=== PATIENT | female | born 1990 | race Caucasian/White ===

== ENCOUNTER 2020-09-10 20:34 | Inpatient (IN) | payer OTHER, SELFPAY ==
[2020-09-10] VITALS (12 sets, daily range): BP systolic 112–134; BP diastolic 65–101; PULSE 51–88; TEMP 36.9; BMI 35.2
--- NOTE | 2020-09-10 20:34 | LDADM ---
This patient, Magy Nunes, was admitted to Labor/Delivery/Recovery 102 on 09/10/20 at 20:34. Plans for labor, pain management and were discussed with patient. Patient/family oriented to hospital policies and general routines including ID bracelet, bed and alarms, visiting hours, pain management, procedures, bathroom and other care routines, personal items, smoking policy, room service/diet and guest tray routines, security routines, and visiting hours. Patient/Family are encouraged to report perceived risks to care and to ask questions if they do not understand what they are told or what they should do. See OBIX for further documentation.
[2020-09-10] MEDS: AMPICILLIN 2 GM/NS 100 ML 2 GM/100 ML BAG IVPB (21:34)
[2020-09-10] MEDS: LACTATED RINGERS 1,000 ML 125 ML IV CONT (21:34)
[2020-09-10 21:35] LABS: Basophils Percent Auto 0.1 % (0.2-1.2); Eosinophils Absolute Auto 0.1 K/mm3 (0-0.3); Eosinophils Percent Auto 0.6 % (0-4.4); Hematocrit 35.2 % (37.0-47.0); Hemoglobin 12.4 g/dL (12.0-15.0); Immature Granulocyte Absolute 0.03 K/mm3 (0.00-0.031); Immature Granulocyte Percent A 0.3 % (0-0.5); Lymphocytes Absolute Auto 2.41 K/mm3 (0.9-3.2); Lymphocytes Percent Auto 25.1 % (18.3-44.2); Mean Corpuscular HGB Conc 35.2 g/dl (32-36); Mean Corpuscular Hemoglobin 32.7 pg (26-34); Mean Corpuscular Volume 92.9 fl (80-100); Mean Platelet Volume 9.5 fl (7.4-10.4); Monocytes Absolute Auto 0.7 K/mm3 (0.1-0.6); Monocytes Percent Auto 6.9 % (2.6-8.5); Neutrophils Absolute Auto 6.5 K/mm3 (1.3-6.7); Platelet Count Result 265 k/mm3 (150-375); Red Blood Count 3.79 M/mm3 (4.2-5.4); Red Cell Distribution Width 13.4 % (11.5-14.5); White Blood Count 9.6 K/mm3 (4.5-10.0)
[2020-09-10 21:52] LABS: Amphetamine Screen Urine Negative (Negative); Barbiturate Screen Urine Negative (Negative); Benzodiazepines Screen Urine Negative (Negative); Cannabinoid Screen Urine Positive (Negative); Cocaine Screen Urine Negative (Negative); Methadone Screen Urine Negative (Negative); Opiate Screen Urine Negative (Negative); Phencyclidine Screen Urine Negative (Negative)
[2020-09-11] VITALS (124 sets, daily range): BP systolic 85–166; BP diastolic 26–102; PULSE 45–165; RESP 18; TEMP 36.1–37.1; O2SAT 96–100
[2020-09-11] MEDS: AMPICILLIN 1 GM/NS 50 ML 1 GM/50 ML BAG IVPB ×2 (01:26→05:49)
[2020-09-11] MEDS: LACTATED RINGERS 1,000 ML 125 ML IV CONT ×3 (02:34→06:51)
--- NOTE | 2020-09-11 03:08 | WPDANESEPP ---
Anes - Eval Pre Procedure Date/Time: 09/11/20 03:08 Pre Op Diagnosis: Leaking Patient Data Age: 30 Gender: F Height: 1.68 m Weight: 99 kg Last Vital Signs Temp 36.6 C 09/11/20 00:44 Pulse 80 09/11/20 03:08 BP 124/82 09/11/20 03:08 Pulse Ox 100 09/11/20 03:05 Allergies Allergy/AdvReac Type Severity Reaction Status Date / Time No Known Allergies Allergy Unverified 07/25/19 09:40 Home Medications Medication Instructions Recorded Confirmed Type PNV cmb#95-ferrous fumarate-FA 1 tablet PO DAILY 08/20/20 09/10/20 History [] Laboratory Tests 09/10/20 09/10/20 09/10/20 21:29 21:29 21:29 WBC 9.6 K/mm3 K/mm3 (4.5-10.0) RBC 3.79 M/mm3 L M/mm3 (4.2-5.4) Hgb 12.4 g/dL g/dL (12.0-15.0) Hct 35.2 % L % (37.0-47.0) MCV 92.9 fl fl (80-100) MCH 32.7 pg pg (26-34) MCHC 35.2 g/dl g/dl (32-36) RDW 13.4 % % (11.5-14.5) Plt Count 265 k/mm3 k/mm3 (150-375) MPV 9.5 fl fl (7.4-10.4) Immature Gran % (Auto) 0.3 % % (0-0.5) Neut % (Auto) 67.0 % % (45.5-73.1) Lymph % (Auto) 25.1 % % (18.3-44.2) [place] % (Auto) 6.9 % % (2.6-8.5) Eos % (Auto) 0.6 % % (0-4.4) Baso % (Auto) 0.1 % L % (0.2-1.2) Lymph # (Auto) 2.41 K/mm3 K/mm3 (0.9-3.2) [place] # (Auto) 0.7 K/mm3 H K/mm3 (0.1-0.6) Eos # (Auto) 0.1 K/mm3 K/mm3 (0-0.3) Baso # (Auto) 0.0 K/mm3 K/mm3 (0.0-0.1) Abs Immat Gran (auto) 0.03 K/mm3 K/mm3 (0.00-0.031) Absolute Neuts (auto) 6.5 K/mm3 K/mm3 (1.3-6.7) Absolute Nucleated RBC 0.0 K/mm3 K/mm3 (0.0-0.012) Nucleated RBC % 0.0 % % (0.0-0.2) Urine Opiates Screen Urine Methadone Screen Ur Barbiturates Screen Ur Phencyclidine Scrn Ur Amphetamine Screen U Benzodiazepines Scrn Urine Cocaine Screen U Cannabinoids Screen RPR Pending Blood Type O Positive Antibody Screen Negative 09/10/20 21:29 WBC RBC Hgb Hct MCV MCH MCHC RDW Plt Count MPV Immature Gran % (Auto) Neut % (Auto) Lymph % (Auto) [place] % (Auto) Eos % (Auto) Baso % (Auto) Lymph # (Auto) [place] # (Auto) Eos # (Auto) Baso # (Auto) Abs Immat Gran (auto) Absolute Neuts (auto) Absolute Nucleated RBC Nucleated RBC % Urine Opiates Screen Negative (Negative) Urine Methadone Screen Negative (Negative) Ur Barbiturates Screen Negative (Negative) Ur Phencyclidine Scrn Negative (Negative) Ur Amphetamine Screen Negative (Negative) U Benzodiazepines Scrn Negative (Negative) Urine Cocaine Screen Negative (Negative) U Cannabinoids Screen Positive A (Negative) RPR Blood Type Antibody Screen Patient hx anesthesia problems: none Family hx anesthesia problems: none PMFSH Past Medical History Medical History PCOS (polycystic ovarian syndrome) STD (female) Surgical History Surgical History H/O bariatric surgery H/O section Hx of cholecystectomy Family History Family History Sibling Autism Hypertension Sibling Crohn's disease Mother Cerebrovascular accident Diabetes mellitus Social History Social History Years smoked: 12 Smoking status: Current every day smoker Tobacco type: cigarettes Substance use: never Gender identity (if verbalized by the patient): Female Spiritual care concerns:
--- NOTE | 2020-09-11 03:11 | WPDANESEFPP ---
Anes - Eval Final PreProcedure Day of Procedure 09/11/20 03:11 Patient weight: obese Heart: regular rate and rhythm Lungs: clear to auscultation and normal air movement Airway: Mallampati scale class II Neurological: alert and oriented ASA classification: II Anesthesia type and monitoring: regional epidural and standard monitoring Informed Consent: The patient's anesthetic plan and its attendant risks and benefits were discussed with the patient/family/POA. Questions were solicited and answers provided to the satisfaction of the patient/family/POA.
[2020-09-11] MEDS: TERBUTALINE SULFATE 1 MG/ML VIAL 0.25 MG SUB-Q (03:56)
--- NOTE | 2020-09-11 07:05 | PM.IMHP ---
H&P: HPI History of Present Illness Date/Time: 09/11/20 07:05 Chief Complaint: SROM Narrative: Magy Nunes is a 30 year old female at 39w5d who presents with SROM. Pt states she has been having a slow leak of fluid since 09/09/20. She states it stops during the day but she continues to have fluid at night. She endoreses good movement. She denies any regular contractions or vaginal bleeding. Her has been complicated by prior for failure to progress and history of gastric sleeve surgery. Review of Systems Cardiovascular: Cardiovascular: Denies chest pain, Denies leg edema, Denies palpitations, Denies dyspnea and Denies dyspnea on exertion Respiratory: Respiratory: Denies cough, Denies dyspnea and Denies dyspnea on exertion Gastrointestinal: Gastrointestinal: Denies abdominal pain, Denies constipation, Denies diarrhea, Denies nausea and Denies vomiting Genitourinary: Genitourinary: Denies hematuria, Denies urinary frequency, Denies dysuria, Denies pelvic pain, Denies urinary incontinence and Denies vaginal discharge Neurologic: Reports system reviewed and no additional complaints, except as documented Psychiatric: Psychiatric: Reports no additional psychiatric complaints Endocrine: Endocrine: Denies palpitations PMFSH Past Medical History Medical History PCOS (polycystic ovarian syndrome) STD (female) Surgical History Surgical History H/O bariatric surgery H/O section Hx of cholecystectomy Family History Family History Sibling Autism Hypertension Sibling Crohn's disease Mother Cerebrovascular accident Diabetes mellitus Social History Social History Years smoked: 12 Smoking status: Current every day smoker Tobacco type: cigarettes Substance use: never Gender identity (if verbalized by the patient): Female Spiritual care concerns: No Meds Home Medications and Allergies Home Medications Medication Instructions Recorded Confirmed Type PNV cmb#95-ferrous fumarate-FA 1 tablet PO DAILY 08/20/20 09/10/20 History [] Allergies Allergy/AdvReac Type Severity Reaction Status Date / Time No Known Allergies Allergy Unverified 07/25/19 09:40 Vital Signs Vital Signs - 24 hr 09/10/20 21:01 09/10/20 21:16 09/10/20 21:31 Temperature Pulse Rate 88 76 78 Blood Pressure 134/101 H 123/83 125/84 Pulse Oximetry 09/10/20 21:47 09/10/20 21:49 09/10/20 22:01 Temperature 36.9 C Pulse Rate 78 66 Blood Pressure 129/83 122/84 Pulse Oximetry 09/10/20 22:16 09/10/20 22:46 09/10/20 23:01 Temperature Pulse Rate 65 56 L 53 L Blood Pressure 126/74 118/81 123/70 Pulse Oximetry 09/10/20 23:16 09/10/20 23:31 09/10/20 23:46 Temperature Pulse Rate 51 L 54 L 55 L Blood Pressure 120/73 121/66 112/65 Pulse Oximetry 09/11/20 00:01 09/11/20 00:16 09/11/20 00:31 Temperature Pulse Rate 47 L 55 L 46 L Blood Pressure 121/56 L 119/65 129/84 Pulse Oximetry 09/11/20 00:44 09/11/20 00:46 09/11/20 01:02 Temperature 36.6 C Pulse Rate 55 L 45 L Blood Pressure 139/90 142/73 H Pulse Oximetry 09/11/20 01:16 09/11/20 01:31 09/11/20 01:47 Temperature Pulse Rate 46 L 45 L 165 H Blood Pressure 132/80 141/77 H 145/74 H Pulse Oximetry 09/11/20 02:17 09/11/20 02:31 09/11/20 02:49 Temperature Pulse Rate 127 H 46 L Blood Pressure 147/42 H 151/81 H Pulse Oximetry 98 09/11/20 02:54 09/11/20 02:56 09/11/20 02:58 Temperature Pulse Rate 53 L 115 H Blood Pressure 150/92 H 100/26 L Pulse Oximetry 100 09/11/20 02:59 09/11/20 03:01 09/11/20 03:02 Temperature Pulse Rate 127 H 54 L Blood Pressure 85/67 L 166/88 H Pulse Oximetry 100 09/11/20 0
--- NOTE | 2020-09-11 08:02 | PM.OBPNVD ---
OB - PN: Subj Subjective Date/time seen: 09/11/20 08:02 cx 7 by rn exam fhts ok OB - PN: Obj Data Labs CBC & Chem 7: 09/10/20 21:29 Labs: Laboratory Results - last 24 hr 09/10/20 09/10/20 02 21:29 21:29 21:29 WBC 9.6 RBC 3.79 L Hgb 12.4 Hct 35.2 L MCV 92.9 MCH 32.7 MCHC 35.2 RDW 13.4 Plt Count 265 MPV 9.5 Immature Gran % (Auto) 0.3 Neut % (Auto) 67.0 Lymph % (Auto) 25.1 [place] % (Auto) 6.9 Eos % (Auto) 0.6 Baso % (Auto) 0.1 L Lymph # (Auto) 2.41 [place] # (Auto) 0.7 H Eos # (Auto) 0.1 Baso # (Auto) 0.0 Abs Immat Gran (auto) 0.03 Absolute Neuts (auto) 6.5 Absolute Nucleated RBC 0.0 Nucleated RBC % 0.0 Urine Opiates Screen Negative Urine Methadone Screen Negative Ur Barbiturates Screen Negative Ur Phencyclidine Scrn Negative Ur Amphetamine Screen Negative U Benzodiazepines Scrn Negative Urine Cocaine Screen Negative U Cannabinoids Screen Positive A Blood Type O Positive Antibody Screen Negative OB - PN A/P Time Spent With Patient Time: Total time spent is greater than 50% in coordination of care (as documented) at patient's floor/unit and/or counseling patient:
[2020-09-11] MEDS: OXYTOCIN 30 UNITS/NS 500 ML 30 UNITS/500 ML BAG 999 UNITS IV CONT (08:20)
--- NOTE | 2020-09-11 08:25 | P.PCNOB_ITS ---
OB - Delivery Note Procedure Delivery date: 09/11/20 Procedure: Intrapartal events: None Induction method: none Delivery monitor: external FHT Route of delivery: Episiotomy description: None Laceration Description: Perineal - 1st Degree Delivery repair: vicryl Specimen: No Quantitative Blood Loss (ml): 258 Anesthesia type: Epidural Disposition: floor [place] Baby Date of : 09/11/20 Time of : 08:16 Weeks of gestation at delivery: 39 gender: Male Weight (pounds): 7 Weight (ounces): 5 presentation: vertex position: Right Occiput Anterior Placenta delivery description: Spontaneous cord vessel description: 3 Vessels score one minute: 8 score five minutes: 9
[2020-09-11 10:32] LABS: Rapid Plasma Reagin Non-Reactive (NonReactive)
[2020-09-11] MEDS: BENZOCAINE 20% AER SPR (*SP) 56 GM CAN 1 SPRAY TOPICAL (11:05)
[2020-09-11] MEDS: WITCH HAZEL 40 PADS 1 PAD TOPICAL (11:06)
[2020-09-12 00:10] VITALS: BP 121/60; PULSE 64; RESP 17; TEMP 36.8; O2SAT 98
[2020-09-12] MEDS: ACETAMINOPHEN 325 MG TABLET 650 MG PO ×2 (05:38→11:35)
[2020-09-12 05:45] VITALS: BP 119/59; PULSE 52; RESP 17; TEMP 36.7
[2020-09-12 05:55] LABS: Hemoglobin 9.7 g/dL (12.0-15.0)
--- NOTE | 2020-09-12 06:56 | PM.OBPNVD ---
OB - PN: Subj Subjective Date/time seen: 09/12/20 06:56 Patient comments: no complaints and pain well controlled OB - PN: Obj Data Labs CBC & Chem 7: 09/12/20 05:42 Labs: Laboratory Results - last 24 hr 09/10/20 09/12/20 21:29 05:42 Hgb 9.7 L Hct 28.0 L RPR Non-reactive OB - PN A/P Plan day: 1 Plan: routine care Time Spent With Patient Time: Total time spent is greater than 50% in coordination of care (as documented) at patient's floor/unit and/or counseling patient: Time with patient: less than 15 minutes Review of Systems Review of Systems: All systems reviewed & are unremarkable except as noted in HPI and below Exam Const: General: no acute distress Eyes: General: appearance normal, both eyes and all related structures Neck: Neck: supple and no JVD Thyroid: thyroid normal Resp: Effort & Inspection: normal respiratory effort Auscultation: clear to auscultation bilaterally Cardio: Rate: regular rate Rhythm: regular rhythm GI: Inspection: non-distended GI Palp: Yes Soft to palpation, No Tenderness to palpation present (GI) and No Guarding due to palpation present (GI) Auscultation: normal bowel sounds : General: Yes bladder normal to palpation External Female Exam: normal external appearance Speculum Exam - Vagina: normal vaginal discharge and No vaginal bleeding Speculum Exam - Cervix: nontender Bimanual exam- vagina & uterus: bladder normal to palpation and No Cervical tenderness present OB/external & speculum: No vaginal bleeding Skin: General skin exam: no rashes or lesions noted Extrem: General: normal to inspection and no edema Psych: Mental Status: mental status grossly normal Affect: normal affect
--- NOTE | 2020-09-12 07:23 | WPDANLDPN2 ---
Anes-Prog Note L&D Date/Time: 09/12/20 07:23 Comfortable throughout: labor and delivery Neuraxial method: epidural Epidural/Spinal procedure site: clean & non-tender Neuro status: Neuro function grossly intact. Cardiovascular status: normal Respiratory status: normal Airway patency: baseline Mental status: baseline Post-Op hydration status: normal Vital Signs: Last Vital Signs Temp 36.7 C 09/12/20 05:45 Pulse 52 L 09/12/20 05:45 Resp 17 09/12/20 05:45 BP 119/59 L 09/12/20 05:45 Pulse Ox 98 09/12/20 00:10 Pain score (VAS): 0 I/O: Intake & Output 09/11/20 09/11/20 09/12/20 15:59 23:59 07:59 Intake Total 1000 Output Total 258 Balance 742 Post-procedural complaints: none Patient feedback: Patient satisfied with anesthetic care.
--- NOTE | 2020-09-12 11:29 | PM.DS ---
DS: Admitting Diagnosis Admitting Diagnosis Admitting Diagnosis: term iup/prev section/labor DS: Summary Hospital Course Hospital Course: the patient was admitted at 39 weeks gestation in active labor. She had a previous section. She underwent successful . Hospital course was otherwise unremarkable Time Spent with Patient Time attestation: Total time spent providing and/or coordinating discharge services: Exam Const: General: no acute distress Eyes: General: appearance normal, both eyes and all related structures Neck: Neck: supple and no JVD Thyroid: thyroid normal Resp: Effort & Inspection: normal respiratory effort Auscultation: clear to auscultation bilaterally Cardio: Rate: regular rate Rhythm: regular rhythm GI: Inspection: non-distended GI Palp: Yes Soft to palpation, No Tenderness to palpation present (GI) and No Guarding due to palpation present (GI) Auscultation: normal bowel sounds : General: Yes bladder normal to palpation External Female Exam: normal external appearance Speculum Exam - Vagina: normal vaginal discharge and No vaginal bleeding Speculum Exam - Cervix: nontender Bimanual exam- vagina & uterus: bladder normal to palpation and No Cervical tenderness present OB/external & speculum: No vaginal bleeding Skin: General skin exam: no rashes or lesions noted Extrem: General: normal to inspection and no edema Psych: Mental Status: mental status grossly normal Affect: normal affect DS: Data Data Completed and Pending Labs on day of discharge: Labs from last 24 hours 09/12/20 05:42 Hgb 9.7 L Hct 28.0 L Discharge Plan Discharge Attending physician on discharge: Isaias Katz Consulting providers: Miguel Ángel Heck Discharging Clinician: Isaias Katz Patient Disposition: Home, Self-Care Activity: no straining and pelvic rest Diet: heart healthy Wound Care Instructions: follow printed instructions Patient Instructions: How to Stop Smoking (DC), Antibiotic Form Stand Alone Forms: General Discharge Information Follow-up/Referrals: Isaias Katz MD [Physician] - Discharge Medications: Continued PNV cmb#95-ferrous fumarate-FA [] 28 mg iron- 800 mcg Tablet 1 tablet PO DAILY RF: 0 Date of admission: 09/10/20 20:34 Primary Care Provider: PHYSICIAN,LOCATION AND MEASUREMENT TECHNICIAN Admitting Provider: Isaias Katz Attending physician on admission: Isaias Katz Condition: Stable
[2020-09-12 11:30] VITALS: BP 124/62; PULSE 82; RESP 18; TEMP 37.1; O2SAT 97
[2020-09-12] MEDS: POLYSACCHARIDE IRON COMPLEX 150 MG CAPSULE PO (11:36)
[2020-09-12] MEDS: MULTIVIT/MIN/PREN/FOL AC/IRON TABLET 1 TAB PO (11:36)
[2020-09-12] MEDS: TETANUS,DIPHTHERIA,AC PERTUSSIS ADULT (0.5 ML) BOOSTRIX IM (11:40)
--- NOTE | 2020-09-12 15:12 | PCCCNOTE ---
Care Coordination. Patient referred to Care Coordination for mom having postive UDS for ana cristina. Meconium sent for baby. Met with pt. at bedside. She reports having good support and plans to go home with significant other, Abhi, and his parents likely today. Pt. reports marijuana use helped her sleep and feel better from pain at end of day. She denies resource needs for or substance use. She reports having all necessary baby care items. She has talked to [facility] in [place] and plans to follow up now that baby is born. Spoke with Cristiane Radford at [facility] Hotline who took pt.'s situation as information only (Intake ID#[id number]).
== END 2020-09-12 15:57 | disposition home or self-care (01) | DRG 806 ==
LOC: ANHLDR 09-11 10:37 → ANHOB2 09-11 10:55
PROVIDERS: Admitting Provider Student in an Organized Health Care Education/Training Program; Visit Provider Obstetrics & Gynecology
DX: O42.92 Full-term premature rupture of membranes, unspecified as to length of time between rupture and onset of labor (principal); O99.324 Drug use complicating childbirth; Z37.0 Single live birth; O34.211 Maternal care for low transverse scar from previous cesarean delivery; Z3A.39 39 weeks gestation of pregnancy; Z23 Encounter for immunization; O99.214 Obesity complicating childbirth; E66.9 Obesity, unspecified; O99.284 Endocrine, nutritional and metabolic diseases complicating childbirth; E28.2 Polycystic ovarian syndrome; O70.0 First degree perineal laceration during delivery; O36.8330 Maternal care for abnormalities of the fetal heart rate or rhythm, third trimester, not applicable or unspecified; F12.90 Cannabis use, unspecified, uncomplicated; O99.334 Smoking (tobacco) complicating childbirth; F17.210 Nicotine dependence, cigarettes, uncomplicated
CPT/HCPCS: 36415; 80307; 84112; 85014; 85018; 85025; 86592; 86850; 86900; 86901; 90471; 90653; 90715; A9270; G0008; J0290; J2590; J2795; J3105; J7120

== ENCOUNTER 2021-08-01 12:56 | Inpatient (IN) | payer BC, MEDICAID, SELFPAY ==
[2021-08-01] VITALS (15 sets, daily range): BP systolic 109–138; BP diastolic 66–92; PULSE 61–96; RESP 14–21; TEMP 36–36.7; O2SAT 97–100; BMI 27.3
--- NOTE | ~2021-08-01 | CT_ITS ---
EXAMINATION: CT abdomen pelvis w con EXAM DATE: 08/01/2021 17:07 INDICATION: Abdominal pain, vomiting. TECHNIQUE: Spiral CT of the abdomen and pelvis was performed following intravenous injection of 100 m L Omnipaque 350. Axial, coronal and sagittal images of the abdomen and pelvis were reviewed. The do se-length product (DLP) for this examination was 601.46 mGy-cm. The exposure was tailored according to patient size (auto mA exposure control), and iterative reconstruction (ASIR) was used as additiona l dose reduction technique. There is no prior study for comparison. FINDINGS: There is approximately 30 cm length of severe ileal wall thickening, enhancing mucosa, ilei tis which could be inflammatory bowel disease or infectious etiology. This is causing transition poin t at the affected segment with severely distended small bowel proximal to this, consistent with obstr uction. There is possible transmural ulceration, which has led to a small contained abscess in betwee n the inflamed loop of ileum (measures 2.6 cm and indicated on axial image 160). Central location is not easily amenable to percutaneous drainage. No free intraperitoneal gas. Small amount of reactive a scites. Normal appendix. Suture material along the greater curvature of the stomach. Small amount of colonic stool. The liver, spleen, adrenal glands and pancreas are unremarkable. There are cholecystectomy cl ips. Portal and splenic veins are patent. Kidneys enhance symmetrically. There is no hydronephrosi s. The uterus and ovaries are unremarkable, no adnexal mass. The bladder is unremarkable. There i s no retroperitoneal or pelvic lymphadenopathy. Left basilar granuloma. Several pelvic bone islands . IMPRESSION: Severe ileitis causing small bowel obstruction. Small contiguous abscess, possibly from t ransmural ulceration of the inflamed bowel loop. No gross free intraperitoneal air. Consider inflamma tory bowel disease, infectious etiologies. Reviewed, dictated and finalized at location A. L ADVISER IMPRESSION: Severe ileitis causing small bowel obstruction. Small contiguous ab scess, possibly from transmural ulceration of the inflamed bowel loop. No gross free intraperitoneal air. Consider inflammatory bowel disease, infectious etio logies.
--- NOTE | ~2021-08-01 | US_ITS ---
EXAMINATION: US OB <=14 wk fetus w TV DATE: 08/01/2021 16:07 INDICATION: Abdominal pain and vaginal bleeding TECHNIQUE: Real-time pelvic ultrasound utilizing both a transvaginal and transabdominal probe was pe rformed. The interpreting radiologist was not present for the study. COMPARISON: None. FINDINGS: The uterus measures 7.4 x 6.2 x 4.5 cm. Endometrial complex measures up to 10-11 mm in thickness. No intrauterine fluid or gestational sac. section scar along the anterior lower uterine segment . The right ovary measures 3.0 x 2.7 x 1.5 cm. Multiple 5 mm smaller anechoic cysts at the right ovary. The left ovary measures 2.8 x 2.2 x 2.2 cm. There is a larger 1.6 cm complex cystic lesion in the le ft ovary with thickened internal septations. Small amount of anechoic free fluid in the pelvis withou t the cul-de-sac at the left adnexal region. No abnormal masses identified either the left or right a dnexal regions. There is suggestion of some wall thickening of a few loops of bowel in the pelvis ant erior to the uterus. IMPRESSION: 1. No intrauterine gestational sac. Differential would include early, failed or ectopic . Re commend clinical follow-up with serial beta-hCG levels and repeat imaging as clinically indicated. 2. 1.6 cm complex cystic lesion within the left ovary with cyst with thin internal septations with di fferential including hemorrhagic cyst, corpus luteum cyst or potentially ovarian neoplasm. Would giulia mmend follow-up ultrasound in 6-12 weeks. 3. Small amount of nonspecific ascites in the pelvis. 4. Suggestion of some bowel wall thickening in the pelvis, unclear whether larger small bowel. Correl ate clinically for enteritis or colitis. Reviewed, dictated and finalized at location B. ECT DESIGN ENGINEER IMPRESSION: 1. No intrauterine gestational sac. Differential would include early, failed or ectopic . Recommend clinical follow-up with serial beta-hCG levels an d repeat imaging as clinically indicated. 2. 1.6 cm complex cystic lesion within the left ovary with cyst with thin inter nal septations with differential including hemorrhagic cyst, corpus luteum cyst or potentially ovarian neoplasm. Would recommend follow-up ultrasound in 6-12 weeks. 3. Small amount of nonspecific ascites in the pelvis. 4. Suggestion of some bowel wall thickening in the pelvis, unclear whether larg er small bowel. Correlate clinically for enteritis or colitis.
--- NOTE | ~2021-08-01 | XR_ITS ---
EXAMINATION: XR abdomen/kub 1V DATE: 08/03/2021 07:47 INDICATION: Small bowel obstruction. TECHNIQUE: A supine view of the abdomen on 2 radiographs was obtained. COMPARISON: CT abdomen and pelvis 08/01/2021 FINDINGS: There are multiple dilated loops of small bowel. The colon is decompressed. Surgical clips in the right upper quadrant are likely from cholecystectomy. IMPRESSION: 1. Small bowel obstruction. Reviewed, dictated and finalized at location A. GER EVENT IMPRESSION: 1. Small bowel obstruction.
--- NOTE | 2021-08-01 13:46 | ECG_ITS ---
Measurements Intervals [place] Rate: 83 P: 23 AK: 109 QRS: 60 QRSD: 89 T: 60 QT: 371 QTc: 438 Interpretive Statements SINUS RHYTHM WITH SHORT AK INTERVAL BASELINE ARTIFACT- II, III, AVR, AVL, AVF, V1-V6 BORDERLINE ECG Electronically Signed On 08-01-2021 14:20:22 [employer] by Deandre Granados D.O.
[2021-08-01 14:09] LABS: Basophils Absolute Auto 0.1 K/mm3 (0.0-0.1); Basophils Percent Auto 0.4 % (0.2-1.2); Eosinophils Percent Auto 0.1 % (0-4.4); Hematocrit 46.2 % (37.0-47.0); Hemoglobin 15.3 g/dL (12.0-15.0); Immature Granulocyte Absolute 0.09 K/mm3 (0.00-0.031); Immature Granulocyte Percent A 0.5 % (0-0.5); Lymphocytes Absolute Auto 1.36 K/mm3 (0.9-3.2); Lymphocytes Percent Auto 7.4 % (18.3-44.2); Mean Corpuscular HGB Conc 33.1 g/dl (32-36); Mean Corpuscular Hemoglobin 28.5 pg (26-34); Mean Corpuscular Volume 86.2 fl (80-100); Monocytes Percent Auto 5.3 % (2.6-8.5); Neutrophils Absolute Auto 15.9 K/mm3 (1.3-6.7); Neutrophils Percent Auto 86.3 % (45.5-73.1); Platelet Count Result 573 k/mm3 (150-375); Red Blood Count 5.36 M/mm3 (4.2-5.4); Red Cell Distribution Width 13.1 % (11.5-14.5); White Blood Count 18.4 K/mm3 (4.5-10.0)
[2021-08-01] MEDS: ONDANSETRON INJ 4 MG/2 ML VIAL (14:15)
[2021-08-01 14:25] LABS: Alanine Aminotransferase 31 U/L (4-35); Albumin Level 4.6 g/dL (3.5-5.1); Alkaline Phosphatase 114 U/L (38-126); Anion Gap 13 mmol/L (8-16); Aspartate Amino Transferase 32 U/L (14-36); Blood Urea Nitrogen 10 mg/dL (7-17); Calcium 10.3 mg/dL (8.4-10.2); Carbon Dioxide 25 mmol/L (22-30); Chloride 98 mmol/L (98-107); Estimated CRCL calculation 98 ml/min; Estimated Glomerular Filt Rate > 60; Glucose 139 mg/dL (65-110); Lipase 27 U/L (23-300); Potassium 3.9 mmol/L (3.4-5.0); Sodium 136 mmol/L (137-145)
[2021-08-01 14:34] LABS: Add Urine Microscopic? YES; Appearance Urine Clear (Clear); Bilirubin Urine 2+ (Negative); Blood Urine Negative (Negative); Color Urine Amber (Yellow); Glucose Urine UA Negative (Negative); Ketones Urine Trace mg/dL (Negative); Leukocyte Esterase Ur Negative LEU/UL (Negative); Mucus Urine Heavy /lpf; Nitrate Urine Negative (Negative); Protein Urine 2+ mg/dL (Negative); Squamous Epithelial Cell Urine Moderate /hpf (Few); WBC Urine 0-3 /hpf
[2021-08-01 14:37] LABS: Lactic Acid Reflex 1.6 mmol/L (0.7-2.1)
[2021-08-01 14:47] LABS: Specific Grav Ur 1.049 (1.001-1.035)
[2021-08-01] MEDS: ONDANSETRON INJ 4 MG/2 ML VIAL IV PUSH ×3 (15:00→23:21)
[2021-08-01] MEDS: LACTATED RINGERS 1,000 ML 999 ML IV CONT ×2 (15:00→15:05)
--- NOTE | 2021-08-01 15:00 | ED.ABDPAIN ---
HPI - Abdominal Pain General Chief Complaint: Abdominal Pain Stated Complaint: Abd pain Time Seen by Provider: 08/01/21 14:27 Source: patient and RN notes reviewed Mode of arrival: ambulatory Limitations: no limitations History of Present Illness HPI narrative: This is a 30 year old female who presents for evaluation of nausea, vomiting and diffuse abdominal pain. She developed mid abdominal pain days ago. This pain has been intermittent and it seems worse with vomiting. She developed vomiting today. She normally has diarrhea due to having gastric sleeve and cholecystectomy. She reports her diarrhea has decreased . She denies fever or chills. She also reports she had some mild pain when she started her menstrual cycle 2 weeks ago so she thought her symptoms were related. Her LMP 07/11/21. She denies fever or chills . She also denies sick contacts. Related Data Home Medications Medication Instructions Recorded Confirmed No Home Medications 08/01/21 08/01/21 Allergies Allergy/AdvReac Type Severity Reaction Status Date / Time No Known Allergies Allergy Verified 08/01/21 13:46 Review of Systems Review of Systems: All systems reviewed & are unremarkable except as noted in HPI and below Constitutional: Constitutional: Denies chills and Denies fever(s) Cardiovascular: Cardiovascular: Denies chest pain Respiratory: Respiratory: Denies cough and Denies dyspnea Gastrointestinal: Gastrointestinal: Reports abdominal pain, Reports diarrhea, Reports nausea and Reports vomiting PMFSH Past Medical History Medical History PCOS (polycystic ovarian syndrome) STD (female) Surgical History Surgical History H/O bariatric surgery H/O section Hx of cholecystectomy Family History Family History Sibling Autism Hypertension Sibling Crohn's disease Mother Cerebrovascular accident Diabetes mellitus Social History Social History Years smoked: 12 Smoking status: Current every day smoker Tobacco type: cigarettes Substance use: never Gender identity (if verbalized by the patient): Female Spiritual care concerns: No Exam Const: General: no acute distress and alert Orientation/consciousness: patient oriented x3 Eyes: EOM: EOMs intact bilaterally Resp: Effort & Inspection: normal respiratory effort and no retractions Auscultation: clear to auscultation bilaterally Cardio: Rate: regular rate Rhythm: regular rhythm Heart sounds: no murmurs GI: GI Palp: Yes Soft to palpation, Yes Tenderness to palpation present (GI) (Diffuse), No Guarding due to palpation present (GI) and No Rigid due to palpation Auscultation: normal bowel sounds : General: Yes no CVA tenderness Back/Spine/Pelvis: Back: no CVA tenderness Skin: General skin exam: normal color Rashes: no rashes Neuro: General: patient oriented x3, moves all extremities and CN's II-XI intact bilaterally Psych: Mental Status: mental status grossly normal Affect: normal affect Course Reevaluation(s) Reevaluation #1: Patient's urine test was reported to be positive so US performed due to patient's pain to rule out ectopic. Her serum HCG is negative. I have discussed this with patient and . They understand. Her nausea is better. I will order CT now that she is not according to serum HCG Date: 08/01/21 Time: 16:27 Reevaluation #2: I have discussed case with Monika with hospitalist service and she accepts patient under Dr. Hale. I also spoke with Dr. Adrian and Dr. Borges who will consult. I discussed I have started antibiotics. No further recommendations at this time. Patient has been made aware of findings. Denies history of inflammatory bowel but states her sister has chrohns
[2021-08-01 15:46] LABS: Beta HCG Quantitative < 2.39 mIU/ML
[2021-08-01] MEDS: MORPHINE SULFATE (*CRX) 4 MG/ML INJ IV PUSH ×2 (19:10→22:15)
--- NOTE | 2021-08-01 21:35 | PM.IMHP ---
H&P: HPI History of Present Illness Date/Time: 08/01/21 21:35 Chief Complaint: Abdominal pain. Narrative: This is a 30-year-old female with history of gastric sleeve, section, and cholecystectomy who presented to the emergency department earlier today for evaluation of abdominal pain. She endorses intermittent periumbilical and suprapubic abdominal discomfort over the past several weeks and thinking back she 1st noticed it at the start of her last menstrual on 07/11/2021. Initially she attributed to menstrual cramps however the discomfort has continued well past the end of her cycle. It seems to have gotten worse over the past 5 to 7 days and she now has nausea and has had several episodes of emesis. She describes a cramping discomfort although on occasion she has fleeting, sharp pain. She has not noticed any significant aggravating factors but does report that the pain seems to be worse at nighttime. She has been taking Tylenol at home with perhaps some benefit. Since her cholecystectomy she has had loose stools and that remains unchanged. Her last bowel movement was this morning but it was much smaller than usual. CT of the abdomen and pelvis done on arrival to the emergency department showed findings of a small-bowel obstruction related to severe ileitis with a small contiguous abscess. Patient has no history of inflammatory bowel disease but reports that her sister was diagnosed with Crohn's in her early 30s. Additionally the patient's bedside urine test came back positive though beta hCG was less than 2.39. A transvaginal ultrasound showed no intrauterine gestational sac as well as a 1.6 cm complex cystic lesion within the left ovary. Patient does report a history of polycystic ovarian syndrome. Review of Systems Review of Systems: Twelve systems were reviewed. No fever. She has had episodes of diaphoresis with nausea. No sweats. Weight has remained stable. She denies hematemesis, melena, and hematochezia. No sick contacts. No recent travel. Denies dysuria. Except as documented, all other systems were reviewed and are negative. [facility] Past Medical History Medical History (Updated 08/01/21 @ 23:18 by Monika Culver PA-C) Depression Polycystic ovarian syndrome Surgical History Surgical History (Updated 08/01/21 @ 21:39 by Monika Culver PA-C) History of bariatric surgery Status post gastric sleeve. History of section History of cholecystectomy Family History Family History Sibling Autism Hypertension Sibling Crohn's disease Mother Cerebrovascular accident Diabetes mellitus Social History Social History (Updated 08/01/21 @ 23:20 by Monika Culver PA-C) Social History: Surrogate decision maker: Diogenes Ortiz, father. Code status: Full code. Smoking packs per day: 0.75 Smoking cigarettes per day: 15.0 Years smoked: 12 Smoking pack-years: 9.00 Smoking status: Current every day smoker Alcohol intake: never Substance use: current Substance use type: marijuana Last use: 07/31/21 Living arrangements: with family Additional living arrangements comments: Patient has a 7-year-old and [id number] at home. 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 Meds Home Medications and Allergies Home Medications Medication Instructions Recorded Confirmed Type No Home Medications 08/01/21 08/01/21 History Allergies Allergy/AdvReac Type Severity Reaction Status Date / Time No Known Allergies Allergy Verified 08/01/21 22:33 Vital Signs Vital Signs - 24 hr 08/01/21 13:10 08/01/21 13:44 08/01/21 14:31 Temperature 98.0 F Pulse Rate 96 83 91 Respiratory Rate 14 17 16 Blood Pressure 125/92 H 122/79 109/77 Pulse Oximetry 100 100 97 08/01/21 15:54 08/01/21 18:15 08/01/21 18:18 Temperature Pulse Rate 71 68 67 Respirato
--- NOTE | 2021-08-01 21:50 | ADMGEN ---
This patient, Magy Nunes, was admitted to Medical Room 349-01. Patient/family oriented to hospital policies and general routines including ID bracelet, bed and alarms, visiting hours, pain management, procedures, bathroom and other care routines, personal items, smoking policy, room service/diet, and visiting hours. Information on how to activate the Rapid Response Team has been discussed. Patient/Family are encouraged to report perceived risks to care and to ask questions if they do not understand what they are told or what they should do.
[2021-08-01] MEDS: SODIUM CHLORIDE 0.9% IV 1,000 ML 125 ML IV CONT (22:08)
[2021-08-02] MEDS: MORPHINE SULFATE (*CRX) 4 MG/ML INJ IV PUSH ×3 (02:26→12:15)
[2021-08-02 05:56] VITALS: BP 122/72; PULSE 77; RESP 18; TEMP 36.1; O2SAT 98
[2021-08-02] MEDS: SODIUM CHLORIDE 0.9% IV 1,000 ML 125 ML IV CONT ×2 (05:56→15:13)
[2021-08-02 06:00] VITALS: BP 122/72; PULSE 77; RESP 18; TEMP 36.1; O2SAT 98
[2021-08-02 06:18] LABS: Basophils Percent Auto 0.2 % (0.2-1.2); Eosinophils Absolute Auto 0.1 K/mm3 (0-0.3); Eosinophils Percent Auto 0.6 % (0-4.4); Hematocrit 35.8 % (37.0-47.0); Hemoglobin 11.7 g/dL (12.0-15.0); Immature Granulocyte Absolute 0.05 K/mm3 (0.00-0.031); Immature Granulocyte Percent A 0.5 % (0-0.5); Lymphocytes Absolute Auto 1.22 K/mm3 (0.9-3.2); Lymphocytes Percent Auto 12.5 % (18.3-44.2); Mean Corpuscular HGB Conc 32.7 g/dl (32-36); Mean Corpuscular Volume 85.6 fl (80-100); Monocytes Absolute Auto 0.6 K/mm3 (0.1-0.6); Neutrophils Absolute Auto 7.9 K/mm3 (1.3-6.7); Neutrophils Percent Auto 80.2 % (45.5-73.1); Platelet Count Result 497 k/mm3 (150-375); Red Blood Count 4.18 M/mm3 (4.2-5.4); White Blood Count 9.8 K/mm3 (4.5-10.0)
[2021-08-02 06:23] LABS: Alanine Aminotransferase 92 U/L (4-35); Albumin Level 3.5 g/dL (3.5-5.1); Alkaline Phosphatase 193 U/L (38-126); Anion Gap 8 mmol/L (8-16); Aspartate Amino Transferase 142 U/L (14-36); Bilirubin,Total 1.2 mg/dL (0.2-1.3); Blood Urea Nitrogen 8 mg/dL (7-17); Calcium 8.6 mg/dL (8.4-10.2); Carbon Dioxide 27 mmol/L (22-30); Chloride 102 mmol/L (98-107); Estimated CRCL calculation 98 ml/min; Estimated Glomerular Filt Rate > 60; Glucose 99 mg/dL (65-110); Potassium 3.3 mmol/L (3.4-5.0); Sodium 137 mmol/L (137-145)
[2021-08-02] MEDS: ONDANSETRON INJ 4 MG/2 ML VIAL IV PUSH ×3 (07:38→20:17)
--- NOTE | 2021-08-02 08:52 | WPDPN ---
Progress Note: A&P Assessment and Plan (1) Small bowel obstruction: Code(s): K56.609 - Unspecified intestinal obstruction, unspecified as to partial versus complete obstruction Status: Acute Assessment and Plan: Secondary to severe ileitis. remain NPO at this time. Surgery and GI consulted. Awaiting recommendations. Thanks you for the care of this patient. (2) Ileitis: Code(s): K52.9 - Noninfective gastroenteritis and colitis, unspecified Status: Acute Assessment and Plan: Infectious +/- inflammatory etiology. Continue Zosyn day 2 wbc's 18.4>9.8 (3) Intra-abdominal abscess: Code(s): K65.1 - Peritoneal abscess Status: Acute Assessment and Plan: GI and surgery consulted. Awaiting recommendations. Thank you for the care of this patient Imaging indicates small contained abscess in between the inflamed loop of ileum wbc 18.4>9.8 (4) Left ovarian cyst: Code(s): N83.202 - Unspecified ovarian cyst, left side Status: Acute Assessment and Plan: 1.6 cm complex cystic lesion within the left ovary with cyst with a differential diagnosis to include hemorrhagic cyst, corpus luteum cyst, or potentially ovarian neoplasm. Radiologist recommends follow-up ultrasound in 6 to 12 weeks. (5) Positive urine test: Code(s): Z32.01 - Encounter for test, result positive Status: Acute Assessment and Plan: Beta hCG was less than 2.39. Subjective Date/time seen: 08/02/21 08:52 patient notes her pain medication is not effective. She notes that 1 hour after taking pain medication she starts to experience pain again. Will change patient's pain medication and monitor to see its effectiveness. Patient denies cp, sob, palpitation, diarrhea, constipation, lightheadness, headache, dizziness or chills and fevers. Review of Systems Review of Systems: A 14 organ system Review of Systems was performed and pertinent positives included in the HPI, otherwise Exam Narrative: GENERAL: This is a well-nourished, well-developed patient, in no apparent distress. HEAD: normocephalic, atraumatic. EYES: PERRL. Sclera clear/white. Vision is grossly intact. EARS: External ears normal, auditory canals clear and without drainage, TMs normal without perforation. Hearing grossly intact. NOSE: External nose normal with no obvious nasal discharge, nares without redness, no rhinorrhea. THROAT: Mucous membranes moist, posterior pharynx clear. NECK: Neck supple, non-tender without lymphadenopathy, masses or thyromegaly. CARDIOVASCULAR: Regular rate and rhythm without murmurs, gallops, or rubs. RESPIRATORY: Clear to auscultation. Breath sounds equal bilaterally. No wheezes, rales, or rhonchi. GASTROINTESTINAL: Abdomen soft, generalized abdominal tenderness, nondistended. Bowel sounds are active. No hepato-splenomegaly, or palpable masses. No guarding. SKIN: warm, intact with no suspicious lesions or rash, good texture and turgor. NEURO: awake, alert, and oriented to person, place and time. There were no obvious focal neurologic abnormalities. Steady gait EXTREMITIES: Normal range of motion. No edema. No calf tenderness. Negative Homans sign bilaterally. BACK: Nontender without deformity or crepitance. No flank tenderness. Objective Data Vital Signs Vital Signs: Vital Signs - 24 hr 08/01/21 13:10 08/01/21 13:44 08/01/21 14:31 Temperature 98.0 F Pulse Rate 96 83 91 Respiratory Rate 14 17 16 Blood Pressure 125/92 H 122/79 109/77 Pulse Oximetry 100 100 97 08/01/21 15:54 08/01/21 18:15 08/01/21 18:18 Temperature Pulse Rate 71 68 67 Respiratory Rate 16 15 15 Blood Pressure 132/86 138/80 138/80 Pulse Oximetry 98 98 99 08/01/21 18:30 08/01/21 18:31 08/01/21 18:45 Temperature Pulse Rate 62 66 61 Respiratory Rate 21 H 18 20 Blood Pressure 136/89 Pulse Oximetry 97 98 97 08/01/21 18:46 08/01/21 19:00
[2021-08-02] MEDS: POTASSIUM CHLORIDE 20 MEQ TABLET 40 MEQ PO (09:41)
--- NOTE | 2021-08-02 10:26 | PM.CNGS ---
Assessment and Plan Assessment and plan (1) Ileitis: Code(s): K52.9 - Noninfective gastroenteritis and colitis, unspecified Status: Acute Assessment and Plan: likely secondary to inflammatory bowel disease, await GI input, cont abx for now, bowel rest, IV hydration (2) Intra-abdominal abscess: Code(s): K65.1 - Peritoneal abscess Status: Acute Assessment and Plan: reviewed c radiology and too small for drainage, cont to observe, abx (3) Small intestine obstruction: Code(s): K56.609 - Unspecified intestinal obstruction, unspecified as to partial versus complete obstruction Status: Acute Assessment and Plan: secondary to ileitis, still c bowel fxn, cont bowel rest, await GI input History of Present Illness Consult details Consult date: 08/02/21 Reason for consult: abdominal pain Requesting physician: Denisse Antoine MD Narrative: The patient is a 30-year-old female presenting to the emergency department complaining of severe crampy abdominal pain. The patient reports that the pain has been present for almost a month, and has been progressively worsening. The patient reports the pain is intermittent, although seemingly worse at night. The patient reports that she has had a poor appetite, but has been able to eat. The patient reports over the last week she has had multiple episodes nausea and vomiting. The patient reports that she has also had diarrhea over this time span. The patient reports she has a sister with Crohn's disease. Review of Systems Constitutional: Constitutional: Reports anorexia, Reports chills, Reports fatigue, Reports fever(s), Denies increased appetite, Reports lethargy, Reports malaise, Reports night sweats, Reports poor appetite, Reports weakness, Denies weight gain and Denies weight loss Eyes: Eyes: Reports no additional eye complaints ENT: Reports system reviewed and no additional complaints, except as documented Cardiovascular: Cardiovascular: Reports no additional cardiovascular complaints Respiratory: Respiratory: Reports no additional respiratory complaints Gastrointestinal: Gastrointestinal: Reports as per HPI, Reports abdominal pain, Reports bloating, Reports GI cramping, Reports early satiety, Reports diarrhea, Reports loose stools, Reports nausea and Reports vomiting Genitourinary: Genitourinary: Reports no additional female genitourinary complaints Musculoskeletal: Musculoskeletal: Reports no additional musculoskeletal complaints Integumentary/Breasts: Skin/Breast: Reports system reviewed and no additional complaints, except as docu Neurologic: Reports system reviewed and no additional complaints, except as documented Psychiatric: Psychiatric: Reports no additional psychiatric complaints Endocrine: Endocrine: Reports no additional endocrine complaints Hematologic/Lymphatic: Hematologic/Lymphatic: Reports no additional hematologic/lymphatic complaints Allergic/Immunologic: Allergic/Immunologic: Reports no additional allergic/immunologic complaints PMFSH Past Medical History Medical History Depression Polycystic ovarian syndrome Surgical History Surgical History History of bariatric surgery Status post gastric sleeve. History of section History of cholecystectomy Family History Family History Sibling Autism Hypertension Sibling Crohn's disease Mother Cerebrovascular accident Diabetes mellitus Social History Social History Social History: Surrogate decision maker: Diogenes Ortiz, father. Code status: Full code. Smoking packs per day: 0.75 Smoking cigarettes per day: 15.0 Years smoked: 12 Smoking pack-years: 9.00 Smoking status: Current every day smoker Alcohol intake: never Substan
[2021-08-02 14:54] VITALS: BP 110/77; PULSE 75; RESP 16; TEMP 36.5; O2SAT 93
[2021-08-02] MEDS: HYDROmorphone HCL INJ (*CRX) 1 MG/ML SYR IV PUSH ×2 (15:07→20:12)
--- NOTE | 2021-08-02 17:21 | WPDGICN ---
Assessment and Plan Assessment and plan (1) Ileitis: Code(s): K52.9 - Noninfective gastroenteritis and colitis, unspecified Status: Acute Assessment and Plan: complicated with SBO surgery on board, npo status, also antibiotics because small abscess (too small to attempt drainage) most likely crohn's disease, will get inflammatory markers and when SBO improved will attempt to do colonoscopy for definitive diagnosis start low dose iv steroids to see if will help also get baseline blood work to check HBV/HIV/TB status since most likely she will need biologics in near future (2) Small bowel obstruction: Code(s): K56.609 - Unspecified intestinal obstruction, unspecified as to partial versus complete obstruction Status: Acute Assessment and Plan: by surgery npo kub in am (3) Intra-abdominal abscess: Code(s): K65.1 - Peritoneal abscess Status: Acute Assessment and Plan: on antibiotics (4) History of bariatric surgery: Code(s): Z98.84 - Bariatric surgery status Status: Inactive (5) Family history of Crohn's disease: Code(s): Z83.79 - Family history of other diseases of the digestive system Status: Acute GI Consult Note Consult date/time: 08/02/21 17:21 Reason for consult: abdominal pain, n/v, SBO, ileitis HPI: Magy Nunes is a 30 year old female with history of gastric sleeve few years ago, cholecystectomy here with increasing abdominal pain for last 3-4 weeks. Last few days progressively worse and also associated nausea and vomiting, loss of appetitie and unable to pass much of gas or have a good BM (at baseline she has loose stools since her GB removed). Sister has Crohn's and treated with humira. Patient never had colonoscopy. CT scan reviewed, showed severe ileitis causing small bowel obstruction. Small contiguous abscess, possibly from transmural ulceration of the inflamed bowel loop. Started on antibiotics, surgery on board. Review of Systems Constitutional: Constitutional: Denies chills Eyes: Eyes: Denies blurry vision ENT: Reports Normal hearing present Cardiovascular: Cardiovascular: Denies chest pain Respiratory: Respiratory: Denies dyspnea Gastrointestinal: Gastrointestinal: Reports abdominal pain, Reports nausea and Reports vomiting Genitourinary: Genitourinary: Denies hematuria Musculoskeletal: Musculoskeletal: Denies neck pain Integumentary/Breasts: Skin/Breast: Denies dry skin Neurologic: Denies system reviewed and no additional complaints, except as documented Psychiatric: Psychiatric: Denies behavioral changes PMFSH Past Medical History Medical History (Updated 08/02/21 @ 17:25 by Jann Borges MD) Depression Family history of Crohn's disease Polycystic ovarian syndrome Surgical History Surgical History (Updated 08/02/21 @ 17:25 by Jann Borges MD) History of bariatric surgery Status post gastric sleeve. History of section History of cholecystectomy Family History Family History Sibling Autism Hypertension Sibling Crohn's disease Mother Cerebrovascular accident Diabetes mellitus Social History Social History Social History: Surrogate decision maker: Diogenes Ortiz, father. Code status: Full code. Smoking packs per day: 0.75 Smoking cigarettes per day: 15.0 Years smoked: 12 Smoking pack-years: 9.00 Smoking status: Current every day smoker Alcohol intake: never Substance use: current Substance use type: marijuana Last use: 07/31/21 Living arrangements: with family Additional living arrangements comments: Patient has a 7-year-old and 18-ghwus-[id number] at home. 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 Meds Home Medications and Allergies Home Medications
[2021-08-02 20:00] VITALS: PULSE 75; RESP 16; O2SAT 93
[2021-08-02] MEDS: methylPREDNISolone SOD SUCC 40 MG VIAL IV PUSH (20:14)
[2021-08-02 22:00] VITALS: BP 128/64; PULSE 77; RESP 16; TEMP 36.9; O2SAT 99
[2021-08-03] MEDS: SODIUM CHLORIDE 0.9% IV 1,000 ML 125 ML IV CONT ×3 (00:33→16:48)
[2021-08-03] MEDS: HYDROmorphone HCL INJ (*CRX) 1 MG/ML SYR IV PUSH ×3 (00:43→20:43)
[2021-08-03] MEDS: ONDANSETRON INJ 4 MG/2 ML VIAL IV PUSH ×2 (00:43→10:01)
[2021-08-03 06:00] VITALS: BP 116/72; PULSE 57; RESP 18; TEMP 36.1; O2SAT 100
--- NOTE | 2021-08-03 08:33 | WPDPN ---
Progress Note: A&P Assessment and Plan (1) Small bowel obstruction: Code(s): K56.609 - Unspecified intestinal obstruction, unspecified as to partial versus complete obstruction Status: Acute Assessment and Plan: Secondary to severe ileitis. Patient with 2 bowel movements, overnight diet advanced indicated she started having abdominal discomfort with nausea not well tolerated Surgery and GI consulted. Awaiting recommendations. Thanks you for the care of this patient. (2) Ileitis: Code(s): K52.9 - Noninfective gastroenteritis and colitis, unspecified Status: Acute Assessment and Plan: Infectious +/- inflammatory etiology. Continue Zosyn day 2 wbc's 18.4>9.8 Per surgery continue antibiotics, bowel rest and IV hydration Per GI possibly secondary to Crohn's would get anti inflammatory marker when SBO has improved and colonoscopy for definitive diagnosis (3) Intra-abdominal abscess: Code(s): K65.1 - Peritoneal abscess Status: Acute Assessment and Plan: GI and surgery consulted. Awaiting recommendations. Thank you for the care of this patient Imaging indicates small contained abscess in between the inflamed loop of ileum wbc 18.4>9.8 Per surgery too small for drainage continue antibiotics (4) Left ovarian cyst: Code(s): N83.202 - Unspecified ovarian cyst, left side Status: Acute Assessment and Plan: 1.6 cm complex cystic lesion within the left ovary with cyst with a differential diagnosis to include hemorrhagic cyst, corpus luteum cyst, or potentially ovarian neoplasm. Radiologist recommends follow-up ultrasound in 6 to 12 weeks. Subjective Date/time seen: 08/03/21 08:33 patient diet has been advanced to a clear liquid diet she did note that she had some abdominal discomfort along with nausea when she consumed her meal today. Patient also noted that she had 2 bowel movements overnight. She has no other complaint and does not appear to be in any distress. Patient denies cp, sob, palpitation, diarrhea, constipation, lightheadness, headache, dizziness or chills and fevers. Review of Systems Review of Systems: A 14 organ system Review of Systems was performed and pertinent positives included in the HPI, otherwise Exam Narrative: GENERAL: This is a well-nourished, well-developed patient, in no apparent distress. HEAD: normocephalic, atraumatic. EYES: PERRL. Sclera clear/white. Vision is grossly intact. EARS: External ears normal, auditory canals clear and without drainage, TMs normal without perforation. Hearing grossly intact. NOSE: External nose normal with no obvious nasal discharge, nares without redness, no rhinorrhea. THROAT: Mucous membranes moist, posterior pharynx clear. NECK: Neck supple, non-tender without lymphadenopathy, masses or thyromegaly. CARDIOVASCULAR: Regular rate and rhythm without murmurs, gallops, or rubs. RESPIRATORY: Clear to auscultation. Breath sounds equal bilaterally. No wheezes, rales, or rhonchi. GASTROINTESTINAL: Abdomen soft, generalized abdominal tenderness, nondistended. Bowel sounds are active. No hepato-splenomegaly, or palpable masses. No guarding. SKIN: warm, intact with no suspicious lesions or rash, good texture and turgor. NEURO: awake, alert, and oriented to person, place and time. There were no obvious focal neurologic abnormalities. Steady gait EXTREMITIES: Normal range of motion. No edema. No calf tenderness. Negative Homans sign bilaterally. BACK: Nontender without deformity or crepitance. No flank tenderness. Objective Data Vital Signs Vital Signs: Vital Signs - 24 hr 08/02/21 14:54 08/02/21 20:00 08/02/21 22:00 Temperature 97.7 F 98.4 F Pulse Rate 75 75 77 Respiratory Rate 16 16 16 Blood Pressure 110/77 128/64 Pulse Oximetry 93 93 99 08/03/21 06:00 Temperature 97 F L Pulse Rate 57 L Respiratory Rate 18 Blood Pressure 116/72 Pulse Oximetry 100 Intake/Output
[2021-08-03] MEDS: POTASSIUM CHLORIDE 20 MEQ PACKET (FOR LIQUID) 40 MEQ PO (08:42)
[2021-08-03] MEDS: methylPREDNISolone SOD SUCC 40 MG VIAL IV PUSH ×2 (08:43→20:01)
--- NOTE | 2021-08-03 09:37 | PM.PNGS ---
Progress Note: A&P Assessment and Plan (1) Ileitis: Code(s): K52.9 - Noninfective gastroenteritis and colitis, unspecified Status: Acute Assessment and Plan: likely secondary to undiagnosed Crohns, cont abx and steroids, exam benign, will start clears (2) Small bowel obstruction: Code(s): K56.609 - Unspecified intestinal obstruction, unspecified as to partial versus complete obstruction Status: Acute Assessment and Plan: resolving, exam benign, +bowel fxn (3) Intra-abdominal abscess: Code(s): K65.1 - Peritoneal abscess Status: Acute Assessment and Plan: cont to observe, cont abx Subjective Subjective Date/Time Seen: 08/03/21 09:37 feels better, no pain unless moving, had two loose BMs overnight Review of Systems Review of Systems: All systems reviewed & are unremarkable except as noted in HPI and below Exam Const: General: cooperative, comfortable and no acute distress Orientation/consciousness: patient oriented x3 Resp: Auscultation: clear to auscultation bilaterally Cardio: Rate: regular rate Rhythm: regular rhythm GI: Inspection: normal to inspection and non-distended GI Palp: Yes Soft to palpation, Yes Tenderness to palpation present (GI), No Guarding due to palpation present (GI) and No Rigid due to palpation Objective Data Vital Signs Vital Signs: Vital Signs - 24 hr 08/02/21 14:54 08/02/21 20:00 08/02/21 22:00 Temperature 36.5 C 36.9 C Pulse Rate 75 75 77 Respiratory Rate 16 16 16 Blood Pressure 110/77 128/64 Pulse Oximetry 93 93 99 08/03/21 06:00 Temperature 36.1 C L Pulse Rate 57 L Respiratory Rate 18 Blood Pressure 116/72 Pulse Oximetry 100 Intake/Output Intake/Output: Intake & Output 07/31/21 08/01/21 08/02/21 08/03/21 23:59 23:59 23:59 23:59 Intake Total 2200 3150 1290 Output Total 900 300 Balance 2200 2250 990 Meds/Results Medications: Active Medications Generic Name Dose Route Start Last Admin Trade Name Freq PRN Reason Stop Dose Admin Diphenhydramine HCl 50 mg 08/02/21 13:35 Diphenhydramine Hcl Inj 50 Mg/Ml Vial IV PUSH HS PRN Itching Hydromorphone HCl 1 mg 08/02/21 13:30 08/03/21 00:43 Hydromorphone Hcl Inj (*Crx) 1 Mg/Ml Syr IV PUSH 1 mg Q3H PRN Administration Pain Rated 7-10 Piperacillin/Tazobactam/Dextrose 3.375 gm in 50 mls @ 100 mls/hr 08/02/21 00:00 08/03/21 06:18 Zosyn 3.375 Gm/D5w 50ml Pm IVPB 100 mls/hr Q6HR IVELISSE Administration Sodium Chloride 1,000 mls @ 125 mls/hr 08/01/21 18:00 08/03/21 08:48 Normal Saline Iv IV CONT 125 mls/hr .Q8H IVELISSE Administration Methylprednisolone Sodium Succinate 40 mg 08/02/21 21:00 08/03/21 08:43 Methylprednisolone Sod Succ 40 Mg Vial IV PUSH 40 mg Q12HR IVELISSE Administration Ondansetron HCl 4 mg 08/01/21 17:57 08/03/21 00:43 Ondansetron Inj 4 Mg/2 Ml Vial IV PUSH 4 mg Q4H PRN Administration Nausea Potassium Chloride 40 meq 08/03/21 09:00 08/03/21 08:42 Potassium Chloride 20 Meq Packet (For Liquid) PO 40 meq DAILY IVELISSE Administration Radiology Results: ITS Impressions Obstetrics Ultrasound 08/01/21 16:13 IMPRESSION: 1. No intrauterine gestational sac. Differential would include early, failed or ectopic . Recommend clinical follow-up with serial beta-hCG levels and repeat imaging as clinically indicated. 2. 1.6 cm complex cystic lesion within the left ovary with cyst with thin internal septations with differential including hemorrhagic cyst, corpus luteum cyst or potentially ovarian neoplasm. Would recommend follow-up ultrasound in 6-12 weeks. 3. Small amount of nonspecific ascites in the pelvis. 4. Suggestion of some bowel wall thickening in the pelvis, unclear whether larger small bowel. Correlate clinically for enteritis or colitis. Abdomen/Pelvis CT 08/01/21 17:08 IMPRESSION: Severe ileitis causing small bowel obstruction. Small contiguous abscess, pos
--- NOTE | 2021-08-03 13:26 | WPDGIPROGNO ---
Progress Note: A&P Assessment and Plan (1) Ileitis: Code(s): K52.9 - Noninfective gastroenteritis and colitis, unspecified Status: Acute Assessment and Plan: better with medical treatment surgery on board because small abscess and SBO- tolerating liquid diet now will try to do colonoscopy Thursday- most likely she has crohn's on abx, low dose steroids (2) Small bowel obstruction: Code(s): K56.609 - Unspecified intestinal obstruction, unspecified as to partial versus complete obstruction Status: Acute (3) Intra-abdominal abscess: Code(s): K65.1 - Peritoneal abscess Status: Acute Assessment and Plan: medical treatment (4) Family history of Crohn's disease: Code(s): Z83.79 - Family history of other diseases of the digestive system Status: Acute Assessment and Plan: ordered baseline labs in case she may need biologics later on Subjective Date/time seen: 08/03/21 13:26 Interval history: had 2 small BM's yesterday, pain is better but not gone- worse after had chicken broth today Review of Systems Review of Systems: All systems reviewed & are unremarkable except as noted in HPI and below Exam Const: General: cooperative, comfortable and no acute distress Orientation/consciousness: patient oriented x3 HENMT: General nose exam: Normal nares present Eyes: Sclera: sclerae normal Neck: Neck: supple Resp: Auscultation: clear to auscultation bilaterally Cardio: Rate: regular rate Rhythm: regular rhythm GI: Inspection: normal to inspection and non-distended GI Palp: Yes Soft to palpation, Yes Tenderness to palpation present (GI), No Guarding due to palpation present (GI) and No Rigid due to palpation Auscultation: normal bowel sounds Skin: General skin exam: no rashes or lesions noted Neuro: Speech: normal speech Motor exam (neuro): Normal motor muscle tone present throughout Extrem: General: normal to inspection Psych: Mental Status: mental status grossly normal Objective Data Vital Signs Vital Signs: Vital Signs - 24 hr 08/02/21 14:54 08/02/21 20:00 08/02/21 22:00 Temperature 97.7 F 98.4 F Pulse Rate 75 75 77 Respiratory Rate 16 16 16 Blood Pressure 110/77 128/64 Pulse Oximetry 93 93 99 08/03/21 06:00 Temperature 97 F L Pulse Rate 57 L Respiratory Rate 18 Blood Pressure 116/72 Pulse Oximetry 100 Intake/Output Intake/Output: Intake & Output 07/31/21 08/01/21 08/02/21 08/03/21 23:59 23:59 23:59 23:59 Intake Total 2200 3150 1340 Output Total 900 300 Balance 2200 2250 1040 Meds/Results Medications: Active Medications Generic Name Dose Route Start Last Admin Trade Name Freq PRN Reason Stop Dose Admin Diphenhydramine HCl 50 mg 08/02/21 13:35 Diphenhydramine Hcl Inj 50 Mg/Ml Vial IV PUSH HS PRN Itching Hydromorphone HCl 1 mg 08/02/21 13:30 08/03/21 10:02 Hydromorphone Hcl Inj (*Crx) 1 Mg/Ml Syr IV PUSH 1 mg Q3H PRN Administration Pain Rated 7-10 Piperacillin/Tazobactam/Dextrose 3.375 gm in 50 mls @ 100 mls/hr 08/02/21 00:00 08/03/21 13:00 Zosyn 3.375 Gm/D5w 50ml Pm IVPB 100 mls/hr Q6HR IVELISSE Administration Sodium Chloride 1,000 mls @ 125 mls/hr 08/01/21 18:00 08/03/21 08:48 Normal Saline Iv IV CONT 125 mls/hr .Q8H IVELISSE Administration Methylprednisolone Sodium Succinate 40 mg 08/02/21 21:00 08/03/21 08:43 Methylprednisolone Sod Succ 40 Mg Vial IV PUSH 40 mg Q12HR IVELISSE Administration Ondansetron HCl 4 mg 08/01/21 17:57 08/03/21 10:01 Ondansetron Inj 4 Mg/2 Ml Vial IV PUSH 4 mg Q4H PRN Administration Nausea Potassium Chloride 40 meq 08/03/21 09:00 08/03/21 08:42 Potassium Chloride 20 Meq Packet (For Liquid) PO 40 meq DAILY IVELISSE Administration Radiology Results: ITS Impressions Obstetrics Ultrasound 08/01/21 16:13 IMPRESSION: 1. No intrauterine gestational sac. Differential would include early, failed or ectopic
[2021-08-03 14:00] VITALS: BP 115/80; PULSE 92; RESP 14; TEMP 36; O2SAT 98
[2021-08-03] MEDS: diphenhydrAMINE HCl INJ 50 MG/ML VIAL IV PUSH (20:01)
[2021-08-03 21:18] LABS: Hematocrit 30.9 % (37.0-47.0); Hemoglobin 10.1 g/dL (12.0-15.0); Mean Corpuscular HGB Conc 32.7 g/dl (32-36); Mean Corpuscular Hemoglobin 28.3 pg (26-34); Mean Corpuscular Volume 86.6 fl (80-100); Mean Platelet Volume 8.9 fl (7.4-10.4); Platelet Count Result 460 k/mm3 (150-375); Red Blood Count 3.57 M/mm3 (4.2-5.4); Red Cell Distribution Width 12.6 % (11.5-14.5); White Blood Count 7.5 K/mm3 (4.5-10.0)
[2021-08-03 21:35] LABS: Alanine Aminotransferase 56 U/L (4-35); Albumin Level 3.4 g/dL (3.5-5.1); Alkaline Phosphatase 136 U/L (38-126); Anion Gap 6 mmol/L (8-16); Aspartate Amino Transferase 30 U/L (14-36); Bilirubin,Total 0.3 mg/dL (0.2-1.3); Blood Urea Nitrogen 5 mg/dL (7-17); Calcium 8.5 mg/dL (8.4-10.2); Carbon Dioxide 25 mmol/L (22-30); Chloride 106 mmol/L (98-107); Estimated CRCL calculation 133 ml/min; Estimated Glomerular Filt Rate > 60; Glucose 108 mg/dL (65-110); Potassium 3.9 mmol/L (3.4-5.0); Sodium 137 mmol/L (137-145)
[2021-08-03 21:53] VITALS: BP 112/64; PULSE 68; RESP 18; TEMP 36.1; O2SAT 99
[2021-08-03 21:55] LABS: Erythrocyte Sedimentation Rate 106 mm/hr (0-20)
[2021-08-03 22:08] LABS: HIV 1/2 Ab P24 Ag Result Negative (Negative)
[2021-08-03 22:31] LABS: Hepatitis B Surface Antigen Negative (Negative)
[2021-08-03 22:48] LABS: Hepatitis B Surface Anti Res Negative
[2021-08-04] VITALS (7 sets, daily range): BP systolic 127–145; BP diastolic 66–86; PULSE 40–50; RESP 12–17; TEMP 36–36.6; O2SAT 99–100
[2021-08-04] MEDS: SODIUM CHLORIDE 0.9% IV 1,000 ML 125 ML IV CONT ×2 (01:18→12:24)
[2021-08-04 05:54] LABS: Hematocrit 30.2 % (37.0-47.0); Hemoglobin 9.7 g/dL (12.0-15.0); Mean Corpuscular HGB Conc 32.1 g/dl (32-36); Mean Corpuscular Hemoglobin 28.1 pg (26-34); Mean Corpuscular Volume 87.5 fl (80-100); Mean Platelet Volume 8.9 fl (7.4-10.4); Platelet Count Result 386 k/mm3 (150-375); Red Blood Count 3.45 M/mm3 (4.2-5.4); Red Cell Distribution Width 12.8 % (11.5-14.5); White Blood Count 7.5 K/mm3 (4.5-10.0)
[2021-08-04 06:01] LABS: Alanine Aminotransferase 47 U/L (4-35); Albumin Level 3.1 g/dL (3.5-5.1); Alkaline Phosphatase 117 U/L (38-126); Anion Gap 6 mmol/L (8-16); Aspartate Amino Transferase 23 U/L (14-36); Bilirubin,Total 0.2 mg/dL (0.2-1.3); Blood Urea Nitrogen 5 mg/dL (7-17); Calcium 8.5 mg/dL (8.4-10.2); Carbon Dioxide 25 mmol/L (22-30); Chloride 105 mmol/L (98-107); Estimated CRCL calculation 113 ml/min; Estimated Glomerular Filt Rate > 60; Glucose 126 mg/dL (65-110); Potassium 4.3 mmol/L (3.4-5.0); Sodium 136 mmol/L (137-145)
--- NOTE | 2021-08-04 09:27 | WPDPN ---
Progress Note: A&P Assessment and Plan (1) Small bowel obstruction: Code(s): K56.609 - Unspecified intestinal obstruction, unspecified as to partial versus complete obstruction Status: Acute Assessment and Plan: Resolved Secondary to severe ileitis. Patient with bowel movements Surgery and GI consulted. Refer to notes (2) Ileitis: Code(s): K52.9 - Noninfective gastroenteritis and colitis, unspecified Status: Acute Assessment and Plan: Infectious +/- inflammatory etiology. Continue Zosyn day 3 wbc's 18.4>9.8>7.5 Per surgery continue antibiotics, and IV hydration diet advanced Per GI possibly secondary to undiagnosed Crohn's. Colonoscopy me on Thursday (3) Intra-abdominal abscess: Code(s): K65.1 - Peritoneal abscess Status: Acute Assessment and Plan: GI and surgery consulted. Awaiting recommendations. Thank you for the care of this patient Imaging indicates small contained abscess in between the inflamed loop of ileum wbc 18.4>9.8>7.5 Per surgery too small for drainage continue antibiotics (4) Left ovarian cyst: Code(s): N83.202 - Unspecified ovarian cyst, left side Status: Acute Assessment and Plan: 1.6 cm complex cystic lesion within the left ovary with cyst with a differential diagnosis to include hemorrhagic cyst, corpus luteum cyst, or potentially ovarian neoplasm. Radiologist recommends follow-up ultrasound in 6 to 12 weeks. (5) Bradycardia: Code(s): R00.1 - Bradycardia, unspecified Status: Acute Assessment and Plan: retake of patient hr is 40, patient not on any med to decreased hr cardiology consulted ekg pending ordered tele Possibly secondary to narcotics change IV Dilaudid to [place] patient able to eat now Subjective Date/time seen: 08/04/21 09:27 patient able to tolerate clear liquid diet today. She is not experiencing abdominal pain and cramping after meals as she did yesterday. She also notes that her pain has improved and she was not taking her pain medications since last night. She did have small bowel today. She also continues to have abdominal tenderness. Patient denies cp, sob, palpitation, diarrhea, constipation, lightheadness, headache, dizziness or chills and fevers. Review of Systems Review of Systems: A 14 organ system Review of Systems was performed and pertinent positives included in the HPI, otherwise Exam Narrative: GENERAL: This is a well-nourished, well-developed patient, in no apparent distress. HEAD: normocephalic, atraumatic. EYES: PERRL. Sclera clear/white. Vision is grossly intact. EARS: External ears normal, auditory canals clear and without drainage, TMs normal without perforation. Hearing grossly intact. NOSE: External nose normal with no obvious nasal discharge, nares without redness, no rhinorrhea. THROAT: Mucous membranes moist, posterior pharynx clear. NECK: Neck supple, non-tender without lymphadenopathy, masses or thyromegaly. CARDIOVASCULAR: Regular rate and rhythm without murmurs, gallops, or rubs. RESPIRATORY: Clear to auscultation. Breath sounds equal bilaterally. No wheezes, rales, or rhonchi. GASTROINTESTINAL: Abdomen soft, generalized abdominal tenderness, nondistended. Bowel sounds are active. No hepato-splenomegaly, or palpable masses. No guarding. SKIN: warm, intact with no suspicious lesions or rash, good texture and turgor. NEURO: awake, alert, and oriented to person, place and time. There were no obvious focal neurologic abnormalities. Steady gait EXTREMITIES: Normal range of motion. No edema. No calf tenderness. Negative Homans sign bilaterally. BACK: Nontender without deformity or crepitance. No flank tenderness. Objective Data Vital Signs Vital Signs: Vital Signs - 24 hr 08/03/21 14:00 08/03/21 21:53 08/04/21 04:06 Temperature 96.8 F L 97 F L 97.8 F Pulse Rate 92 68 40 L Respiratory Rate 14 18 17 Blood Pressure 115/80 1
[2021-08-04] MEDS: POTASSIUM CHLORIDE 20 MEQ PACKET (FOR LIQUID) 40 MEQ PO (09:36)
[2021-08-04] MEDS: methylPREDNISolone SOD SUCC 40 MG VIAL IV PUSH ×2 (09:37→20:31)
--- NOTE | 2021-08-04 10:25 | ECG_ITS ---
Measurements Intervals [place] Rate: 53 P: 42 OR: 139 QRS: 26 QRSD: 112 T: 22 QT: 437 QTc: 412 Interpretive Statements SINUS BRADYCARDIA WITH SINUS ARRHYTHMIA INTRAVENTRICULAR CONDUCTION DELAY BORDERLINE ECG Electronically Signed On 08-04-2021 16:01:09 [employer] by Deandre Granados D.O.
--- NOTE | 2021-08-04 10:51 | WPDGIPROGNO ---
Progress Note: A&P Assessment and Plan (1) Ileitis: Code(s): K52.9 - Noninfective gastroenteritis and colitis, unspecified Status: Acute Assessment and Plan: better with medical treatment surgery on board because small abscess and SBO- tolerating liquid diet now colonoscopy tomorrow, most likely Crohn's disease (also had elevated inflammatory markers) on abx, low dose steroids (2) Small bowel obstruction: Code(s): K56.609 - Unspecified intestinal obstruction, unspecified as to partial versus complete obstruction Status: Acute Assessment and Plan: improving (3) Intra-abdominal abscess: Code(s): K65.1 - Peritoneal abscess Status: Acute Assessment and Plan: medical treatment (4) Family history of Crohn's disease: Code(s): Z83.79 - Family history of other diseases of the digestive system Status: Acute Assessment and Plan: ordered baseline labs in case she may need biologics later on Subjective Date/time seen: 08/04/21 10:51 Interval history: tolerating CL diet and feeling better, still some pain Review of Systems Review of Systems: All systems reviewed & are unremarkable except as noted in HPI and below Exam Const: General: cooperative, comfortable and no acute distress Orientation/consciousness: patient oriented x3 HENMT: General nose exam: Normal nares present Eyes: Sclera: sclerae normal Neck: Neck: supple Resp: Auscultation: clear to auscultation bilaterally Cardio: Rate: regular rate Rhythm: regular rhythm GI: Inspection: normal to inspection and non-distended GI Palp: Yes Soft to palpation, Yes Tenderness to palpation present (GI) (mild in lower abdomen, no rebound), No Guarding due to palpation present (GI) and No Rigid due to palpation Auscultation: normal bowel sounds Skin: General skin exam: no rashes or lesions noted Neuro: Speech: normal speech Motor exam (neuro): Normal motor muscle tone present throughout Extrem: General: normal to inspection Psych: Mental Status: mental status grossly normal Objective Data Vital Signs Vital Signs: Vital Signs - 24 hr 08/03/21 14:00 08/03/21 21:53 08/04/21 04:06 Temperature 96.8 F L 97 F L 97.8 F Pulse Rate 92 68 40 L Respiratory Rate 14 18 17 Blood Pressure 115/80 112/64 127/66 Pulse Oximetry 98 99 99 08/04/21 09:40 Temperature Pulse Rate 40 L Respiratory Rate Blood Pressure Pulse Oximetry Intake/Output Intake/Output: Intake & Output 08/01/21 08/02/21 08/03/21 08/04/21 23:59 23:59 23:59 23:59 Intake Total 2200 3150 2740 1450 Output Total 900 300 Balance 2200 2250 2440 1450 Meds/Results Medications: Active Medications Generic Name Dose Route Start Last Admin Trade Name Freq PRN Reason Stop Dose Admin Hydrocodone Bitart/Acetaminophen 1 tab 08/04/21 10:16 Hydrocodone/Acetaminophen (*Crx) 10-325 Mg Tablet PO Q4H PRN Pain Rated 7-10 Diphenhydramine HCl 50 mg 08/02/21 13:35 08/03/21 20:01 Diphenhydramine Hcl Inj 50 Mg/Ml Vial IV PUSH 50 mg HS PRN Administration Itching Piperacillin/Tazobactam/Dextrose 3.375 gm in 50 mls @ 100 mls/hr 08/02/21 00:00 08/04/21 05:34 Zosyn 3.375 Gm/D5w 50ml Pm IVPB Infused Q6HR IVELISSE Infusion Sodium Chloride 1,000 mls @ 125 mls/hr 08/01/21 18:00 08/04/21 01:18 Normal Saline Iv IV CONT 125 mls/hr .Q8H IVELISSE Administration Methylprednisolone Sodium Succinate 40 mg 08/02/21 21:00 08/04/21 09:37 Methylprednisolone Sod Succ 40 Mg Vial IV PUSH 40 mg Q12HR IVELISSE Administration Ondansetron HCl 4 mg 08/01/21 17:57 08/03/21 10:01 Ondansetron Inj 4 Mg/2 Ml Vial IV PUSH 4 mg Q4H PRN Administration Nausea Radiology Results: ITS Impressions Obstetrics Ultrasound 08/01/21 16:13 IMPRESSION: 1. No intrauterine gestational sac. Differential would include early, failed or ectopic . Recommend clinical follow-up with serial beta-hCG lev
[2021-08-04 11:36] LABS: Troponin I < 0.012 ng/mL (0.000-0.034)
--- NOTE | 2021-08-04 12:03 | PM.PNGS ---
Progress Note: A&P Assessment and Plan (1) Ileitis: Code(s): K52.9 - Noninfective gastroenteritis and colitis, unspecified Status: Acute Assessment and Plan: improved c abx and steroids, mony soft diet, exam benign, plan for colonoscopy tomorrow am per GI (2) Small bowel obstruction: Code(s): K56.609 - Unspecified intestinal obstruction, unspecified as to partial versus complete obstruction Status: Acute Assessment and Plan: see above, largely resolved Subjective Subjective Date/Time Seen: 08/04/21 12:03 feels much better, +bowel fxn, mony soft diet Review of Systems Review of Systems: All systems reviewed & are unremarkable except as noted in HPI and below Exam Const: General: cooperative, comfortable and no acute distress Orientation/consciousness: patient oriented x3 Resp: Auscultation: clear to auscultation bilaterally Cardio: Rate: regular rate Rhythm: regular rhythm GI: Inspection: normal to inspection, non-distended and incision GI Palp: Yes Soft to palpation, No Tenderness to palpation present (GI), No Guarding due to palpation present (GI) and No Rigid due to palpation Objective Data Vital Signs Vital Signs: Vital Signs - 24 hr 08/03/21 14:00 08/03/21 21:53 08/04/21 04:06 Temperature 36.0 C L 36.1 C L 36.6 C Pulse Rate 92 68 40 L Respiratory Rate 14 18 17 Blood Pressure 115/80 112/64 127/66 Pulse Oximetry 98 99 99 08/04/21 09:40 Temperature Pulse Rate 40 L Respiratory Rate Blood Pressure Pulse Oximetry Intake/Output Intake/Output: Intake & Output 08/01/21 08/02/21 08/03/21 08/04/21 23:59 23:59 23:59 23:59 Intake Total 2200 3150 2740 1450 Output Total 900 300 Balance 2200 2250 2440 1450 Meds/Results Medications: Active Medications Generic Name Dose Route Start Last Admin Trade Name Freq PRN Reason Stop Dose Admin Hydrocodone Bitart/Acetaminophen 1 tab 08/04/21 10:16 Hydrocodone/Acetaminophen (*Crx) 10-325 Mg Tablet PO Q4H PRN Pain Rated 7-10 Bisacodyl 20 mg 08/04/21 17:00 Bisacodyl 5 Mg Tablet Ec PO 08/04/21 17:01 ONCE ONE Diphenhydramine HCl 50 mg 08/02/21 13:35 08/03/21 20:01 Diphenhydramine Hcl Inj 50 Mg/Ml Vial IV PUSH 50 mg HS PRN Administration Itching Piperacillin/Tazobactam/Dextrose 3.375 gm in 50 mls @ 100 mls/hr 08/02/21 00:00 08/04/21 05:34 Zosyn 3.375 Gm/D5w 50ml Pm IVPB Infused Q6HR IVELISSE Infusion Sodium Chloride 1,000 mls @ 125 mls/hr 08/01/21 18:00 08/04/21 01:18 Normal Saline Iv IV CONT 125 mls/hr .Q8H IVELISSE Administration Magnesium Citrate 300 ml 08/05/21 04:00 Magnesium Citrate 300 Ml Btl PO 08/05/21 04:01 ONCE ONE Methylprednisolone Sodium Succinate 40 mg 08/02/21 21:00 08/04/21 09:37 Methylprednisolone Sod Succ 40 Mg Vial IV PUSH 40 mg Q12HR IVELISSE Administration Ondansetron HCl 4 mg 08/01/21 17:57 08/03/21 10:01 Ondansetron Inj 4 Mg/2 Ml Vial IV PUSH 4 mg Q4H PRN Administration Nausea Polyethylene Glycol/Electrolytes 4,000 ml 08/04/21 17:00 Peg (High)/E-Lyte Soln 4,000 Ml Btl PO 08/04/21 17:01 ONCE ONE Radiology Results: ITS Impressions Obstetrics Ultrasound 08/01/21 16:13 IMPRESSION: 1. No intrauterine gestational sac. Differential would include early, failed or ectopic . Recommend clinical follow-up with serial beta-hCG levels and repeat imaging as clinically indicated. 2. 1.6 cm complex cystic lesion within the left ovary with cyst with thin internal septations with differential including hemorrhagic cyst, corpus luteum cyst or potentially ovarian neoplasm. Would recommend follow-up ultrasound in 6-12 weeks. 3. Small amount of nonspecific ascites in the pelvis. 4. Suggestion of some bowel wall thickening in the pelvis, unclear whether larger small bowel. Correlate clinically for enteritis or colitis. Abdomen/Pelvis CT 08/01/21 17:08 IMPRESSION: Severe ileitis causing small bow
[2021-08-04] MEDS: HYDROcodone/acetaminophen (*CRX) 10-325 MG TABLET 1 TAB PO ×2 (14:24→18:37)
[2021-08-04] MEDS: BISACODYL 5 MG TABLET EC 20 MG PO (17:59)
[2021-08-04] MEDS: PEG (High)/E-LYTE SOLN 4,000 ML BTL 4000 ML PO (17:59)
[2021-08-05] VITALS (8 sets, daily range): BP systolic 132–164; BP diastolic 79–99; PULSE 36–73; RESP 11–18; TEMP 36.1–36.3; O2SAT 99–100
[2021-08-05] MEDS: MAGNESIUM CITRATE 300 ML BTL PO (03:20)
[2021-08-05 06:37] LABS: Hematocrit 30.4 % (37.0-47.0); Hemoglobin 9.6 g/dL (12.0-15.0); Mean Corpuscular HGB Conc 31.6 g/dl (32-36); Mean Corpuscular Hemoglobin 27.3 pg (26-34); Mean Corpuscular Volume 86.4 fl (80-100); Mean Platelet Volume 8.6 fl (7.4-10.4); Platelet Count Result 377 k/mm3 (150-375); Red Blood Count 3.52 M/mm3 (4.2-5.4); Red Cell Distribution Width 12.8 % (11.5-14.5); White Blood Count 8.4 K/mm3 (4.5-10.0)
[2021-08-05 06:50] LABS: Alanine Aminotransferase 81 U/L (4-35); Albumin Level 3.2 g/dL (3.5-5.1); Alkaline Phosphatase 127 U/L (38-126); Anion Gap 4 mmol/L (8-16); Aspartate Amino Transferase 77 U/L (14-36); Bilirubin,Total 0.2 mg/dL (0.2-1.3); Blood Urea Nitrogen 6 mg/dL (7-17); Calcium 8.6 mg/dL (8.4-10.2); Carbon Dioxide 29 mmol/L (22-30); Chloride 104 mmol/L (98-107); Estimated CRCL calculation 98 ml/min; Estimated Glomerular Filt Rate > 60; Glucose 107 mg/dL (65-110); Sodium 137 mmol/L (137-145)
[2021-08-05] MEDS: methylPREDNISolone SOD SUCC 40 MG VIAL IV PUSH (08:39)
[2021-08-05] MEDS: SODIUM CHLORIDE 0.9% IV 1,000 ML 125 ML IV CONT ×2 (08:39→17:52)
--- NOTE | 2021-08-05 10:05 | PM.IMPN ---
Progress Note: A&P Assessment and Plan (1) Small bowel obstruction: Code(s): K56.609 - Unspecified intestinal obstruction, unspecified as to partial versus complete obstruction Status: Acute Assessment and Plan: Improvin gResolved Secondary to severe ileitis. GI following, recommendations appreciated GS following, recommendations appreciated (2) Ileitis: Code(s): K52.9 - Noninfective gastroenteritis and colitis, unspecified Status: Acute Assessment and Plan: Improved Suspect Chrons' Continue Zosyn Continue methyprdnisolone Colonoscopy today (3) Intra-abdominal abscess: Code(s): K65.1 - Peritoneal abscess Status: Acute Assessment and Plan: CT of A/P-->small contiguous abscess, possibly from transmural ulceration of the inflamed bowel loop GS following, recommendations apprecaited GI following Continue antibiotics (4) Left ovarian cyst: Code(s): N83.202 - Unspecified ovarian cyst, left side Status: Acute Assessment and Plan: US-->1.6 cm complex cystic lesion within the left ovary with cyst with a differential diagnosis to include hemorrhagic cyst, corpus luteum cyst, or potentially ovarian neoplasm. Radiologist recommends follow-up ultrasound in 6 to 12 weeks (5) Bradycardia: Code(s): R00.1 - Bradycardia, unspecified Status: Acute Assessment and Plan: ECG-->sinus bradycardia Cardiology consulted Possibly secondary to narcotics change IV Dilaudid to [place] patient able to eat now Tele monitoring Consider ECHO Subjective Date/time seen: 08/05/21 10:05 Interval history: Pt seen and examined; labs, vs, diagnostic results and consult notes reviewed; pt denies any new complaints; plan for colonoscopy this afternoon Review of Systems Review of Systems: All systems reviewed & are unremarkable except as noted in HPI and below Exam Const: General: no acute distress, alert and awake Orientation/consciousness: patient oriented x3 HENMT: Head: normocephalic and atraumatic Ears: hearing grossly normal bilaterally and external ears normal Face and sinus: face symmetric Mouth: Yes Normal oral and palatal mucosa present Eyes: EOM: EOMs intact bilaterally Neck: Neck: full ROM, trachea midline and no JVD Resp: Effort & Inspection: normal respiratory effort Auscultation: clear to auscultation bilaterally Cardio: Jugular venous distension: no JVD Rate: regular rate Rhythm: regular rhythm Heart sounds: S1 normal heart sound present and S2 normal heart sound present GI: Inspection: striae GI Palp: Yes Soft to palpation Percussion: Yes normal to percussion Auscultation: normal bowel sounds : General: Yes no CVA tenderness Skin: General skin exam: normal color Rashes: no rashes Neuro: General: patient oriented x3 and no focal motor deficits Speech: normal speech Extrem: General: full ROM and no clubbing, cyanosis or edema Psych: Appearance: grossly normal Affect: normal affect Judgement: Good judgement present (Psych) Objective Data Vital Signs Vital Signs: Vital Signs - 24 hr 08/04/21 12:00 08/04/21 14:00 08/04/21 16:00 Temperature 36.0 C L Pulse Rate 43 L 45 L 44 L Respiratory Rate 12 Blood Pressure 145/80 H Pulse Oximetry 100 08/04/21 19:46 08/04/21 20:00 08/05/21 00:00 Temperature 36.1 C L Pulse Rate 50 L 48 L 42 L Respiratory Rate 16 Blood Pressure 137/86 Pulse Oximetry 100 08/05/21 04:00 08/05/21 05:02 08/05/21 08:00 Temperature 36.1 C L Pulse Rate 41 L 42 L 42 L Respiratory Rate 16 Blood Pressure 133/82 Pulse Oximetry 100 Intake/Output Intake/Output: Intake & Output 08/02/21 08/03/21 08/04/21 08/05/21 23:59 23:59 23:59 23:59 Intake Total 3150 2740 3550 100 Output Total 900 300 Balance 2250 2440 3550 100 Meds/Results Medications: Active Medications Generic Name Dose Route Start Last Admin Trade Name Freq PRN Reason Stop Dose Admin Ac
--- NOTE | 2021-08-05 10:09 | PM.PNGS ---
Progress Note: A&P Assessment and Plan (1) Ileitis: Code(s): K52.9 - Noninfective gastroenteritis and colitis, unspecified Status: Acute Assessment and Plan: improved, suspect Crohns', scope today, exam cont to be benign, cont abx, steroids Subjective Subjective Date/Time Seen: 08/05/21 10:09 no acute issues, feels pretty good Review of Systems Review of Systems: All systems reviewed & are unremarkable except as noted in HPI and below Exam Const: General: cooperative, comfortable and no acute distress Resp: Auscultation: clear to auscultation bilaterally Cardio: Rate: regular rate Rhythm: regular rhythm GI: Inspection: normal to inspection, no edema and distended GI Palp: Yes Soft to palpation, Yes Tenderness to palpation present (GI), No Guarding due to palpation present (GI) and No Rigid due to palpation Objective Data Vital Signs Vital Signs: Vital Signs - 24 hr 08/04/21 12:00 08/04/21 14:00 08/04/21 16:00 Temperature 36.0 C L Pulse Rate 43 L 45 L 44 L Respiratory Rate 12 Blood Pressure 145/80 H Pulse Oximetry 100 08/04/21 19:46 08/04/21 20:00 08/05/21 00:00 Temperature 36.1 C L Pulse Rate 50 L 48 L 42 L Respiratory Rate 16 Blood Pressure 137/86 Pulse Oximetry 100 08/05/21 04:00 08/05/21 05:02 08/05/21 08:00 Temperature 36.1 C L Pulse Rate 41 L 42 L 42 L Respiratory Rate 16 Blood Pressure 133/82 Pulse Oximetry 100 Intake/Output Intake/Output: Intake & Output 08/02/21 08/03/21 08/04/21 08/05/21 23:59 23:59 23:59 23:59 Intake Total 3150 2740 3550 100 Output Total 900 300 Balance 2250 2440 3550 100 Meds/Results Medications: Active Medications Generic Name Dose Route Start Last Admin Trade Name Freq PRN Reason Stop Dose Admin Acetaminophen 650 mg 08/04/21 13:58 Acetaminophen 325 Mg Tablet PO Q4H PRN Headache Hydrocodone Bitart/Acetaminophen 1 tab 08/04/21 10:16 08/04/21 18:37 Hydrocodone/Acetaminophen (*Crx) 10-325 Mg Tablet PO 1 tab Q4H PRN Administration Pain Rated 7-10 Diphenhydramine HCl 50 mg 08/02/21 13:35 08/03/21 20:01 Diphenhydramine Hcl Inj 50 Mg/Ml Vial IV PUSH 50 mg HS PRN Administration Itching Piperacillin/Tazobactam/Dextrose 3.375 gm in 50 mls @ 100 mls/hr 08/02/21 00:00 08/05/21 05:30 Zosyn 3.375 Gm/D5w 50ml Pm IVPB Infused Q6HR IVELISSE Infusion Sodium Chloride 1,000 mls @ 125 mls/hr 08/01/21 18:00 08/05/21 08:39 Normal Saline Iv IV CONT 125 mls/hr .Q8H IVELISSE Administration Lactated Ringer's 1,000 mls @ 150 mls/hr 08/05/21 08:15 Lr - Lactated Ringers Iv IV CONT .Q6H40M IVELISSE Methylprednisolone Sodium Succinate 40 mg 08/02/21 21:00 08/05/21 08:39 Methylprednisolone Sod Succ 40 Mg Vial IV PUSH 40 mg Q12HR IVELISSE Administration Ondansetron HCl 4 mg 08/01/21 17:57 08/03/21 10:01 Ondansetron Inj 4 Mg/2 Ml Vial IV PUSH 4 mg Q4H PRN Administration Nausea Tramadol HCl 25 mg 08/04/21 13:58 Tramadol Hcl (*Crx) 25 Mg Tablet PO Q6H PRN Pain Rated 4-6 Trazodone HCl 50 mg 08/04/21 21:00 08/04/21 19:45 Trazodone Hcl 50 Mg Tablet PO Not Given HS [facility] Radiology Results: ITS Impressions Obstetrics Ultrasound 08/01/21 16:13 IMPRESSION: 1. No intrauterine gestational sac. Differential would include early, failed or ectopic . Recommend clinical follow-up with serial beta-hCG levels and repeat imaging as clinically indicated. 2. 1.6 cm complex cystic lesion within the left ovary with cyst with thin internal septations with differential including hemorrhagic cyst, corpus luteum cyst or potentially ovarian neoplasm. Would recommend follow-up ultrasound in 6-12 weeks. 3. Small amount of nonspecific ascites in the pelvis. 4. Suggestion of some bowel wall thickening in the pelvis, unclear whether larger small bowel. Correlate clinically for enteritis or colitis. Abdomen/Pelvis CT 08/01/21 17:
--- NOTE | 2021-08-05 13:44 | WPDANESEPPF ---
Anes - Initial Pre Proc Eval Procedure: Operation Date: 08/05/21 15:15 Proposed Procedures p Colonoscopy - Jann Borges MD Date/Time: 08/05/21 13:44 Surgeon: Denisse Antoine MD Pre Op Diagnosis: Ileitis,Small Bowel Obstruction Patient Data Age: 30 Gender: F Height: 1.7 m Weight: 79.1 kg Last Vital Signs Temp 36.1 C L 08/05/21 05:02 Pulse 37 L 08/05/21 12:00 Resp 16 08/05/21 05:02 BP 133/82 08/05/21 05:02 Pulse Ox 100 08/05/21 05:02 Allergies Allergy/AdvReac Type Severity Reaction Status Date / Time No Known Allergies Allergy Verified 08/05/21 14:36 Home Medications Medication Instructions Recorded Confirmed Type No Home Medications 08/01/21 08/01/21 History Laboratory Tests 08/05/21 08/05/21 06:28 06:28 WBC 8.4 K/mm3 K/mm3 (4.5-10.0) RBC 3.52 M/mm3 L M/mm3 (4.2-5.4) Hgb 9.6 g/dL L g/dL (12.0-15.0) Hct 30.4 % L % (37.0-47.0) MCV 86.4 fl fl (80-100) MCH 27.3 pg pg (26-34) MCHC 31.6 g/dl L g/dl (32-36) RDW 12.8 % % (11.5-14.5) Plt Count 377 k/mm3 H k/mm3 (150-375) MPV 8.6 fl fl (7.4-10.4) Sodium 137 mmol/L mmol/L (137-145) Potassium 4.0 mmol/L mmol/L (3.4-5.0) Chloride 104 mmol/L mmol/L (98-107) Carbon Dioxide 29 mmol/L mmol/L (22-30) Anion Gap 4 mmol/L L mmol/L (8-16) BUN 6 mg/dL L mg/dL (7-17) Creatinine 0.70 mg/dL mg/dL (0.7-1.0) Estim Creat Clear Calc 98 ml/min ml/min Estimated GFR > 60 (59 - ) Glucose 107 mg/dL mg/dL (65-110) Calcium 8.6 mg/dL mg/dL (8.4-10.2) Total Bilirubin 0.2 mg/dL mg/dL (0.2-1.3) AST 77 U/L H U/L (14-36) ALT 81 U/L H U/L (4-35) Alkaline Phosphatase 127 U/L H U/L (38-126) Total Protein 6.0 g/dL L g/dL (6.3-8.2) Albumin 3.2 g/dL L g/dL (3.5-5.1) Patient hx anesthesia problems: none Family hx anesthesia problems: none Results Review: All pre-operative results and documents have been reviewed as part of the pre-operative evaluation. [facility] Past Medical History Medical History (Updated 08/04/21 @ 10:10 by OLEG AbreuC) Depression Family history of Crohn's disease Polycystic ovarian syndrome Surgical History Surgical History (Updated 08/02/21 @ 17:25 by Jann Borges MD) History of bariatric surgery Status post gastric sleeve. History of section History of cholecystectomy Family History Family History Sibling Autism Hypertension Sibling Crohn's disease Mother Cerebrovascular accident Diabetes mellitus Social History Social History Social History: Surrogate decision maker: Diogenes Ortiz, father. Code status: Full code. Smoking packs per day: 0.75 Smoking cigarettes per day: 15.0 Years smoked: 12 Smoking pack-years: 9.00 Smoking status: Current every day smoker Alcohol intake: never Substance use: current Substance use type: marijuana Last use: 07/31/21 Living arrangements: with family Additional living arrangements comments: Patient has a 7-year-old and [id number] at home. 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 Anes - Eval Final PreProcedure Day of Procedure 08/05/21 13:44 Patient weight: overweight Heart: regular rate and rhythm Lungs: clear to auscultation and normal air movement Airway: Mallampati scale class II Neurological: alert and oriented Last oral intake: >/= 8 hours ASA classification: III Emergent: no Anesthetic plan: proceed Anesthesia type and monitoring: general GIVS and standard monitoring Results Review: All pre-operative results and documents have been reviewed as part of the pre-operative evaluation. Infor
--- NOTE | 2021-08-05 14:26 | PM.CNCAR ---
Assessment and Plan Additional Plan 30-year-old lady with sinus bradycardia which is asymptomatic and I believe rather benign and probably vagally mediated given the fact that she is in the hospital with a small-bowel obstruction. There is no specific intervention or treatment of this necessary at this time. We will follow her with you on telemetry but at this point I would simply observe this on telemetry. The anesthesiologist will undoubtedly have atropine at the ready during the time of her colonoscopy which will occur shortly Marcio Burnette MD [facility] History of Present Illness History of Present Illness Consult date/time: 08/05/21 14:26 Reason For Visit: Ileitis,Small Bowel Obstruction Narrative: This is a 30-year-old woman I am seeing at the request of the hospitalist because of sinus bradycardia. The patient describes no cardiovascular symptoms nor any history of known cardiac problems. She was hospitalized since the middle of last week with abdominal pain where she was found to have a small-bowel obstruction. She was treated conservatively. Because she has had a bariatric operation the past an NG tube with decompression was not performed. She was treated with antibiotics and steroids and has improved. It was noticed of since she has been in the hospital that she tends to be bradycardic with heart rates in the 40s most of the time. We have been consulted to see her for this reason. The electrocardiogram other than sinus bradycardia is normal. There is normal AV and intraventricular conduction and no evidence of AV block. She does not have any history of syncope until she came into the hospital this time she said she had a brief episode of syncope in the emergency room when she was in relatively severe abdominal pain. Apparently there was of family member, a sister with Crohn's disease and the leading suspicion clinically is that she possibly has Crohn's. She is undergoing a colonoscopy shortly to assist with establishing that diagnosis. Review of Systems Constitutional: Constitutional: Reports no additional constitutional complaints Eyes: Eyes: Reports no additional eye complaints ENT: Reports system reviewed and no additional complaints, except as documented Cardiovascular: Cardiovascular: Reports no additional cardiovascular complaints Respiratory: Respiratory: Reports no additional respiratory complaints Gastrointestinal: Gastrointestinal: Reports as per HPI and Reports abdominal pain Musculoskeletal: Musculoskeletal: Reports no additional musculoskeletal complaints Integumentary/Breasts: Skin/Breast: Reports system reviewed and no additional complaints, except as docu Neurologic: Reports system reviewed and no additional complaints, except as documented Endocrine: Endocrine: Reports no additional endocrine complaints Hematologic/Lymphatic: Hematologic/Lymphatic: Reports no additional hematologic/lymphatic complaints Allergic/Immunologic: Allergic/Immunologic: Reports no additional allergic/immunologic complaints [facility] Past Medical History Medical History (Updated 08/04/21 @ 10:10 by SHAN Abreu) Depression Family history of Crohn's disease Polycystic ovarian syndrome Surgical History Surgical History (Updated 08/02/21 @ 17:25 by Jann Borges MD) History of bariatric surgery Status post gastric sleeve. History of section History of cholecystectomy Family History Family History Sibling Autism Hypertension Sibling Crohn's disease Mother Cerebrovascular accident Diabetes mellitus Social History Social History Social History: Surrogate decision maker: Diogenes Ortiz, father. Code status: Full code. Smoking packs per day: 0.75 Smoking cigarettes per day: 15.0 Years smoked: 12 Smoking pack-years: 9.00 Smoking status: Current every day
[2021-08-05] MEDS: LACTATED RINGERS 1,000 ML 150 ML IV CONT (14:35)
[2021-08-05] MEDS: MORPHINE SULFATE (*CRX) 2 MG/ML INJ 1 MG IV PUSH (16:11)
[2021-08-05] MEDS: HYDROcodone/acetaminophen (*CRX) 10-325 MG TABLET 1 TAB PO (17:48)
--- NOTE | 2021-08-05 18:38 | PC.NURSE ---
Patient is a&o x4 and is wanting to leave AMA, form completed and placed in chart, education given. Hospitalist notified.
--- NOTE | 2021-08-06 07:04 | WPDANESPN ---
Anes - Prog Note Post-Op Date/Time: 08/06/21 07:04 Cardiovascular status: normal Respiratory status: normal Airway patency: baseline Mental status: baseline Post-Op hydration status: normal Vital Signs: Last Vital Signs Temp 97.4 F L 08/05/21 14:37 Pulse 73 08/05/21 16:05 Resp 11 L 08/05/21 16:05 BP 164/99 H 08/05/21 16:05 Pulse Ox 99 08/05/21 16:05 Pain Score (VAS): 0 from anesthesia I/O: Intake & Output 08/05/21 08/05/21 08/06/21 15:59 23:59 07:59 Intake Total 50 1370 Balance 50 1370 Laboratory Tests 08/05/21 06:28 08/05/21 06:28 Post-procedural complaints: none Patient Feedback: Patient satisfied with anesthetic care.
[2021-08-06 13:05] LABS: Hepatitis B Core Ab Total Nonreactive (Nonreactive)
--- NOTE | 2021-08-07 14:51 | PM.DS ---
DS: Admitting Diagnosis Discharge Date 08/05/21 Admitting Diagnosis Abdominal pain DS: Discharge Diagnosis Discharge Diagnosis (1) Small bowel obstruction: Code(s): K56.609 - Unspecified intestinal obstruction, unspecified as to partial versus complete obstruction Status: Acute Assessment and Plan: Improvin gResolved Secondary to severe ileitis. GI following, recommendations appreciated GS following, recommendations appreciated (2) Ileitis: Code(s): K52.9 - Noninfective gastroenteritis and colitis, unspecified Status: Acute Assessment and Plan: Improved Suspect Chrons' Continue Zosyn Continue methyprdnisolone Colonoscopy today (3) Intra-abdominal abscess: Code(s): K65.1 - Peritoneal abscess Status: Acute Assessment and Plan: CT of A/P-->small contiguous abscess, possibly from transmural ulceration of the inflamed bowel loop GS following, recommendations apprecaited GI following Continue antibiotics (4) Left ovarian cyst: Code(s): N83.202 - Unspecified ovarian cyst, left side Status: Acute Assessment and Plan: US-->1.6 cm complex cystic lesion within the left ovary with cyst with a differential diagnosis to include hemorrhagic cyst, corpus luteum cyst, or potentially ovarian neoplasm. Radiologist recommends follow-up ultrasound in 6 to 12 weeks (5) Bradycardia: Code(s): R00.1 - Bradycardia, unspecified Status: Acute Assessment and Plan: ECG-->sinus bradycardia Cardiology consulted Possibly secondary to narcotics change IV Dilaudid to [place] patient able to eat now Tele monitoring Consider ECHO DS: Summary Hospital Course Hospital Course: 30-year-old female with history of gastric sleeve, section, and cholecystectomy who presented to the emergency department earlier today for evaluation of abdominal pain. She endorses intermittent periumbilical and suprapubic abdominal discomfort over the past several weeks and thinking back she 1st noticed it at the start of her last menstrual on 07/11/2021. Initially she attributed to menstrual cramps however the discomfort has continued well past the end of her cycle. It seems to have gotten worse over the past 5 to 7 days and she now has nausea and has had several episodes of emesis. She describes a cramping discomfort although on occasion she has fleeting, sharp pain. She has not noticed any significant aggravating factors but does report that the pain seems to be worse at nighttime. She has been taking Tylenol at home with perhaps some benefit. Since her cholecystectomy she has had loose stools and that remains unchanged. Her last bowel movement was this morning but it was much smaller than usual. CT of the abdomen and pelvis done on arrival to the emergency department showed findings of a small-bowel obstruction related to severe ileitis with a small contiguous abscess. Patient has no history of inflammatory bowel disease but reports that her sister was diagnosed with Crohn's in her early 30s. Additionally the patient's bedside urine test came back positive though beta hCG was less than 2.39. A transvaginal ultrasound showed no intrauterine gestational sac as well as a 1.6 cm complex cystic lesion within the left ovary. Patient does report a history of polycystic ovarian syndrome. Pt left AMA at around 1830 after undergoing colonoscopy. She became belligerent according to nursing staff. She discontinues her IV herself and left. Time Spent with Patient Time attestation: Total time spent providing and/or coordinating discharge services: Time spent: Greater than 30 minutes DS: Data Data Completed and Pending Pending studies at discharge: Pending at discharge 08/05/21 15:55 Surgical [PTH] Routine Discharge Plan Discharge Consulting providers: Jann Borges ; Pam Adrian ; Marcio Burnette ; Tl Robertson ; John Lazcano ; Monika Culver ; Patrick
== END 2021-08-05 18:41 | disposition left against medical advice (07) | DRG 385 ==
LOC: ANHED 18:11 → ANH3MED 18:18
PROVIDERS: Emergency Medicine; Internal Medicine Gastroenterology; Nurse Practitioner; Admitting Provider Internal Medicine; Emergency Provider General Practice; PCP Family Medicine; Visit Provider Internal Medicine
PROC: 0DJD8ZZ Inspection of Lower Intestinal Tract, Via Natural or Artificial Opening Endoscopic (ICD-10-PCS; CPT 45378; principal; 2021-08-05 15:15)
DX: K50.914 Crohn's disease, unspecified, with abscess (principal); K65.1 Peritoneal abscess; K64.8 Other hemorrhoids; R00.1 Bradycardia, unspecified; E28.2 Polycystic ovarian syndrome; F32.A Depression, unspecified; F17.210 Nicotine dependence, cigarettes, uncomplicated; Z90.49 Acquired absence of other specified parts of digestive tract; Z98.84 Bariatric surgery status; Z83.79 Family history of other diseases of the digestive system
CPT/HCPCS: 36415; 74018; 74177; 76801; 76817; 80053; 81001; 81025; 83605; 83690; 84484; 84702; 85025; 85027; 85461; 85652; 86140; 86703; 86704; 86706; 87340; 88305; 93005; 96365; 96367; 96375; 96376; 99285; A9270; G0378; G0432; J0131; J1170; J1200; J2270; J2405; J2543; J2704; J2920; J7030; J7120; Q9967

== ENCOUNTER 2021-09-23 15:50 | Outpatient (CLI) | payer BC, SELFPAY ==
--- NOTE | ~2021-09-23 | CT_ITS ---
EXAMINATION: CT abdomen pelvis wo con EXAM DATE: 09/23/2021 16:25 INDICATION: Crohn's disease with obstruction an abscess. TECHNIQUE: Spiral CT of the abdomen and pelvis was performed without contrast. Axial, coronal and s agittal images of the abdomen and pelvis were reviewed. The dose-length product (DLP) for this exami [facility] [place] was 657.02 mGy-cm. The exposure was tailored according to patient size (auto mA exposure cont rol), and iterative reconstruction (ASIR) was used as additional dose reduction technique. Comparison is made to prior examination from 08/01/2021. FINDINGS: There is bilobulated this phlegmonous region located above the bladder extending into the m esentery surrounded by small bowel, each lobulation measuring about 4-5 cm. There are a couple puncta te foci of gas within the more cephalad one, less than on previous examination. This is also contiguo us to the cecal base. There is no sizable quantity of drainable fluid density within this. Superior a spect of bladder wall is thickened, remainder of bladder wall is unremarkable and no gas within the b ladder. There is a single loop of mildly distended small bowel with some evidence of stasis, mild ile us or low-grade obstruction given stool identified within the ileum distal to this and colon. Improve ment in amount of small bowel wall thickening, inflammation. The liver, spleen, adrenal glands and pancreas are unremarkable. There are cholecystectomy clips. T here is no nephrolithiasis or hydronephrosis. The uterus is unremarkable. There is no retroperito oliverio or pelvic lymphadenopathy. Surgical changes along the greater curvature of the stomach. There is expected amount of colonic sto ol. No free intraperitoneal gas. The heart is normal in size. There are no pericardial or pleura l effusions. There is left lower lobe calcified granuloma. There are no osteoblastic or osteolytic lesions identified. IMPRESSION: Bilobulated phlegmon lower central aspect of abdomen, contiguous to cecal base and bladde r superior wall. No evidence of drainable fluid. Mild mid ileal wall edema, segment of dilation and fecal stasis probably ileus or low-grade obstruction. Overall improvement in these findings compared to prior study. Reviewed, dictated and finalized at location [facility] IMPRESSION: Bilobulated phlegmon lower central aspect of abdomen, contiguous to cecal base and bladder superior wall. No evidence of drainable fluid. Mild mi d ileal wall edema, segment of dilation and fecal stasis probably ileus or low- grade obstruction. Overall improvement in these findings compared to prior stud y.
== END 2021-09-23 15:51 | disposition home or self-care (01) ==
LOC: ANHIMG 15:54
PROVIDERS: PCP Family Medicine; Visit Provider Family Medicine
DX: K50.014 Crohn's disease of small intestine with abscess (principal)
CPT/HCPCS: 74176